=== PATIENT | male | born 1970 | race Caucasian/White ===

== ENCOUNTER 2024-07-11 11:31 | Emergency (ER) | payer OTHER, SELFPAY ==
[2024-07-11 11:39] VITALS: BP 146/91; PULSE 84; RESP 16; TEMP 36.7; O2SAT 100
--- OUTSIDE RECORDS SUMMARY | 2024-07-11 12:16 | XMS_ITS | Encounter Summary ---
Author Organization [facility] Address [address] [place] [id number] Care Team Providers Care Shop Firer/Fireman Name Role Phone Main Benson MD Primary Care Provider [phone] Reason for Visit * Reason Onset Date Comments Advice 05/14/2024 Question 05/14/2024 Encounter Details Date Type Department Care Team (Late st Contact Info) Description 05/14/2024 Telephone [facility] Medical [facility] Multispecialty [address] [address] Too Vargas MD [address] [place] [address] Advice; Question Social History Tobacco Use Types Packs/Day Years Used Date Smoking Tobacco: Every Day Cigarettes 0.5 39.4 Started: 1985 Smokeless Tobacco: Never Alcohol Use Standard Drinks/Week Comments Not Currently 0 (1 standard drink = 0.6 oz pur e alcohol) Sex and Gender Information Value Date Recorded Sex Assigned at Male 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 The most important is the culture result. That will take about 6 to 8 weeks to come in. We will call patient as soon as we have the definite report on the culture. * Pau Linares MA - 06/11/2024 2:04 PM CDT Patient states the health department said they are still looking for those records also patient stated that he was told by Dr. Chin that the TB results came back negative from the bronchoscopy test. * Nadia Cornell - 06/04/2024 3:23 PM CDT Caller name: Gerry Call back/ext. #: [phone] MyChart: No- caller prefers to be called via telephone Call details: Gerry concerned, he reached out to [facility] and told they only hold records for 7 years.and requesting a callback I have encouraged he stick with the plan and sign MINH with [facility] while he wait for callback * Pau Linares MA - 06/04/2024 3:18 PM CDT Spoke with [facility] they stated that patient would have to sign a releasefor them to send us the information, patient states he will go at his earliest convince to sign release * Pau Linares MA - 05/17/2024 2:36 PM CDT Requested documented in this encounter Plan of Treatment Upcoming Encounters Date Type Department Care Team (Late st Contact Info) Description 07/18/2024 2:20 PM CDT Office Visit [facility] [place] [address] Too Vargas MD [address] [place] [address] documented as of this encounter Visit Diagnoses Not on filedocumented in this encounter Additional Health Concerns Infection Onset Date Last Indicated Resolved Time Tuberculosis Rule-Out 05/29/2024 05/29/2024 documented as of this encounter Care Teams Shop Firer/Fireman Relationship Specialty Start Date End Date Main Benson MD [address] [place] [address] PCP - General FAMILY PRACTICE 02/09/24 documented as of this encounter
--- OUTSIDE RECORDS SUMMARY | 2024-07-11 12:16 | XMS_ITS | Patient Health Record ---
Author Organization [facility] Address [address] [place], [place] [id number] Care Team Providers Care Apron Trimmer Name Role Phone Tyler Lockett Unavailable [phone] Reason For Referral No Information Immunizations Vaccine Route Administration Date Status Comme nts Influenza Unknown 07/02/2015 Administered Problems Problem Type SNOMED Code ICD Code Onset Dates Problem Status W/U Status Risk Notes Problem Bilateral chronic serous otitis (934509811) Chronic serous otitis media, bilateral (H65.23) Active confirmed Problem Allergic rhinitis (51598699) Allergic rhinitis, unspecified (J30.9) Active confirmed Problem Dysfunction of bilateral eustachian tubes (604545748110805 0) Other specified disorders of Eustachian tube, bilateral (H69.83) Active confirmed Plan Of Treatment No Information Insurance Providers Payer Name Payer Address Payer Phone Subscriber Number Group Number Insured Name Patient Relationship to Insured Coverage Start Date Coverage End Date [employer] [facility] [address] [address] [place] [address] [id number] Gerry Dooley Self - patient is the insured Medical (General) History Medical History History ICD Code Pertinent Medical History: Ear problems, Nose problems, Surgical History Surgery Date(Month/Year) BTTI 08/2015
--- OUTSIDE RECORDS SUMMARY | 2024-07-11 12:16 | XMS_ITS | Encounter Summary ---
Author Organization [facility] Address [address] [place] [id number] Care Team Providers Care Spice Miller [employer] Mill Name Role Phone Main Benson MD Primary Care Provider [phone] Reason for Visit * Reason Onset Date Comments Advice 05/14/2024 Encounter Details Date Type Department Care Team (Late Contact Info) Description 05/14/2024 Telephone 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 documented in this encounter Plan of Treatment Upcoming Encounters Date Type Department Care Team (Late Contact Info) Description 07/18/2024 2:20 PM CDT Office Visit [facility] Medical [facility] [address] [place] [address] Too Vargas MD [address] [place] [address] documented as of this encounter Visit Diagnoses Not on filedocumented in this encounter Additional Health Concerns Infection Onset Date Last Indicated Resolved Time Tuberculosis Rule-Out 05/29/2024 05/29/2024 documented as of this encounter Care Teams Spice [employer] Relationship Specialty Start Date End Date Main Benson MD [address] [place] [phone] PCP - General FAMILY PRACTICE 02/09/24 documented as of this encounter
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
--- OUTSIDE RECORDS SUMMARY | 2024-07-11 12:16 | XMS_ITS | Encounter Summary ---
Author Organization [facility] Address [address] [place] [address] Care Team Providers Care E Business Consultant Name Role Phone Main Benson MD Primary Care Provider [phone] Reason for Visit * Reason Onset Date Comments Advice 05/14/2024 Encounter Details Date Type Department Care Team (Late Contact Info) Description 05/14/2024 Telephone [facility] Multispecialty [facility] [address] [place] [phone] [place] [address] [place] [address] Advice Social History Tobacco Use Types Packs/Day Years Used Date Smoking Tobacco: Every Day Cigarettes 0.5 39.4 Started: 1985 Smokeless Tobacco: Never Alcohol Use Standard Drinks/Week Comments Not Currently 0 (1 standard drink = 0.6 oz pur e alcohol) Sex and Gender Information Value Date Recorded Sex Assigned at Male 04/01/2024 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 Sex Male 6:19 PM CDT Gender Identity Not on file Sexual Orientation Not on file documented as of this encounter Plan of Treatment Upcoming Encounters Date Type Department Care Team (Late Contact Info) Description 07/18/2024 2:20 PM CDT Office Visit [facility] [place] [address] [place] [address] [place] [address] documented as of this encounter Visit Diagnoses Not on filedocumented in this encounter Additional Health Concerns Infection Onset Date Last Indicated Resolved Time Tuberculosis Rule-Out 05/29/2024 05/29/2024 documented as of this encounter Care Teams E Business Consultant Relationship Specialty Start Date End Date Main Benson MD [address] [place] [phone] PCP - General FAMILY PRACTICE 02/09/24 documented as of this encounter
[2024-07-11] MEDS: ACETAMINOPHEN 500 MG TABLET 1000 MG PO (12:20)
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
== END 2024-07-11 12:26 | disposition home or self-care (01) ==
PROVIDERS: Emergency Provider Emergency Medicine
DX: R51.9 Headache, unspecified (principal); V53.5XXA Driver of pick-up truck or van injured in collision with car, pick-up truck or van in traffic accident, initial encounter
CPT/HCPCS: 99283; A9270

== ENCOUNTER 2024-08-31 14:09 | Emergency (ER) | payer OTHER, SELFPAY ==
[2024-08-31] VITALS (14 sets, daily range): BP systolic 137–152; BP diastolic 82–88; PULSE 81–97; RESP 14–21; TEMP 36.2–36.6; O2SAT 99–100
--- OUTSIDE RECORDS SUMMARY | 2024-08-31 14:11 | XMS_ITS | Encounter Summary ---
Author Organization [facility] Address [address] [place] [address] Care Team Providers Care Lawyer Name Role Phone Main Benson MD Primary Care Provider [phone] Reason for Visit * Reason Onset Date Comments Advice 05/14/2024 Question 05/14/2024 Encounter Details Date Type Department Care Team (Late st Contact Info) Description 05/14/2024 Telephone [facility] Medical [facility] Multispecialty [address] [phone] Too Vargas MD [address] [place] [address] Advice; Question Social History Tobacco Use Types Packs/Day Years Used Date Smoking Tobacco: Every Day Cigarettes 0.5 39.5 Started: 1986 Smokeless Tobacco: Never Alcohol Use Standard Drinks/Week Comments Not Currently 0 (1 standard drink = 0.6 oz pur e alcohol) Sex and Gender Information Value Date Recorded Sex Assigned at Male 04/01/2024 10:[address]UTTER Legal Sex Male 6:19 PM CDT Gender [...] CDT Caller name: Gerry Call back/ext. #: [phone] MyChart: No- caller prefers to be called via telephone Call details: Gerry concerned, he reached out to [facility] and told they only hold records for 7 years.and requesting a callback I have encouraged he stick with the plan and sign MINH with [facility] while he wait for callback * Pau Linares MA - 06/04/2024 3:18 PM CDT Spoke with [facility] they stated that patient would have to sign a releasefor them to send us the information, patient states he will go at his earliest convince to sign release * Pau Linares MA - 05/17/2024 2:36 PM CDT Requested documented in this encounter Plan of Treatment Not on file documented as of this encounter Visit Diagnoses Not on filedocumented in this encounter Additional Health Concerns Infection Onset Date Last Indicated Resolved Time Tuberculosis Rule-Out 05/29/2024 05/29/20242024 11:57 AM CDT documented as of this encounter Care Teams Lawyer Relationship Specialty Start Date End Date Main Benson MD [address] [place] [phone] PCP - General FAMILY PRACTICE 02/09/24 documented as of this encounter
--- OUTSIDE RECORDS SUMMARY | 2024-08-31 14:11 | XMS_ITS | Encounter Summary ---
Author Organization [facility] Address [address] [place] [address] Care Team Providers Care Package Dyer Name Role Phone Main Benson MD Primary Care Provider [phone] Reason for Visit * Reason Onset Date Comments Advice 05/14/2024 Encounter Details Date Type Department Care Team ([facility] st Contact Info) Description 05/14/2024 Telephone [facility] Multispecialty [facility] [address] [place] [phone] Too Vargas MD [address] [place] [address] Advice Social History Tobacco Use Types Packs/Day Years Used Date Smoking Tobacco: Every Day Cigarettes 0.5 39.5 Started: 1985 Smokeless Tobacco: Never Alcohol Use Standard Drinks/Week Comments Not Currently 0 (1 standard drink = 0.6 oz pur e alcohol) Sex and Gender Information Value Date Recorded Sex Assigned at Male 04/01/2024 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
--- OUTSIDE RECORDS SUMMARY | 2024-08-31 14:11 | XMS_ITS | Encounter Summary ---
Author Organization [facility] Address [address] [place] [address] Care Team Providers Care Silk Screen Printing Racker Name Role Phone Main Benson MD Primary Care Provider [phone] Reason for Visit * Reason Onset Date Comments Advice 05/14/2024 Encounter Details Date Type Department Care Team ([facility] st Contact Info) Description 05/14/2024 Telephone [facility] Medical [facility] Multispecialty [facility] [address] [place] [phone] Too Vargas MD [address] [place] [address] Advice Social History Tobacco Use Types Packs/Day Years Used Date Smoking Tobacco: Every Day Cigarettes 0.5 39.5 Started: 1985 Smokeless Tobacco: Never Alcohol Use Standard Drinks/Week Comments Not Currently 0 (1 standard drink = 0.6 oz pur e alcohol) Sex and Gender Information Value Date Recorded Sex Assigned at Male 04/01/2024 10:26 AM 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 Legal Sex Male 6:19 PM CDT Gender Identity Not on file Sexual Orientation Not on file documented as of this encounter Plan of Treatment Not on file documented as of this encounter Visit Diagnoses Not on filedocumented in this encounter Additional Health Concerns Infection Onset Date Last Indicated Resolved Time Tuberculosis Rule-Out 05/29/2024 05/29/20242024 11:57 AM CDT documented as of this encounter Care Teams Silk Screen Printing Racker Relationship Specialty Start Date End Date Main Benson MD [address] [place] [phone] PCP - General FAMILY PRACTICE 02/09/24 documented as of this encounter
--- OUTSIDE RECORDS SUMMARY | 2024-08-31 14:11 | XMS_ITS | Patient Health Record ---
Author Organization [facility] Address [address] [place], [place] [id number] Care Team Providers Care Dye Colorist Dyer Name Role Phone Tyler Lockett Unavailable [phone] Reason For Referral No Information Immunizations Vaccine Route Administration Date Status Comme nts Influenza Unknown 07/02/2015 Administered Problems Problem Type SNOMED Code ICD Code Onset Dates Problem Status W/U Status Risk Notes Problem Bilateral chronic serous otitis (116557558) Chronic serous otitis media, bilateral (H65.23) Active confirmed Problem Allergic rhinitis (05286758) Allergic rhinitis, unspecified (J30.9) Active confirmed Problem Other specified disorders of Eustachian tube, bilateral (H69.83) Active confirmed Plan Of Treatment No Information Insurance Providers Payer Name Payer Address Payer Phone Subscriber Number Group Number Insured Name Patient Relationship to Insured Coverage Start Date Coverage End Date [employer] [facility] [address] [address] [place] [id number] Gerry Dooley Self - patient is the insured Medical (General) History Medical History History ICD Code Pertinent Medical History: Ear problems, Nose problems, Surgical History Surgery Date(Month/Year) BTTI 08/2015
--- OUTSIDE RECORDS SUMMARY | 2024-08-31 14:11 | XMS_ITS | Clinical Summary ---
Author Organization [facility] Address [address] [place] [id number] Care Team Providers Care Grocery Clerk Stocking Name Role Phone Main Benson MD Primary Care Provider [phone]- [phone] Allergies No known active allergies Medications pantoprazole [...] total) by mouth daily. 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 Lung nodule 04/30/2024 History of TB (tuberculosis) 04/30/2024 Centrilobular emphysema (CMS/HCC HHS/HCC) 2024 Smoker 04/30/2024 Encounters Date Type Department Care Team Description 07/05/2024 11:15 AM CDT - 07/05/2024 11:59 PM T Hospital Encounter [facility] [address], [facility] Nadja Gomes MD Ramani, Nirali, MD Discharge Disposition: Home or Self Care (Routine Discharge) 07/05/2024 Travel 06/27/2024 Results Follow-Up [facility] [address] [facility] [place] [address] Mara Schwarz, DYE MIXER CULTURE, ANAEROBIC, CYTOLOGY GENERIC, CULTURE VIRAL RESPIRATORY RAPID, Additional followed-up results: 9 06/06/2024 1:40 PM CDT Telemedicine [facility] Multispecial[facility] [address] [place] [address] Faby Chin MD Follow Up (Med check ) from Last 3 Months Social History Tobacco Use Types Packs/Day Years Used Date Smoking Tobacco: Every Day Cigarettes 0.5 39.5 Started: 1985 Smokeless Tobacco: Never Tobacco Cessation:Ready to Q uit: Not Asked; Counseling Given: Not Answered Alcohol Use Standard Drinks/Week Comments Not Currently 0 (1 standard drink = 0.6 oz pur e alcohol) Sex and Gender Information Value Date Recorded Sex Assigned at Male 04/01/2024 10:26 AM RESEARCH DIRECTOR Legal Sex Male 6:19 PM CDT Gender [...] 11:16 AM CDT Height 175.3 cm (5' 9) 05/29/2024 11:16 AM CDT Body Mass Index 22.45 05/29/2024 11:16 AM CDT Plan of Treatment Health Maintenance Due Date Last Done Comments [...] - 2023-2 5 season) 2023 PHQ-2 (Physician [place]) 02/28/2024 Hepatitis C Completed 04/01/2024 Meningococcal B [...] disease (CKD), stage IV (severe) (CMS/HCC HHS/HCC) PROTEIN TOTAL URINE RANDOM Routine 07/05/2024 [...] disease (CKD), stage IV (severe) (CMS/HCC HHS/HCC) PTH - INTACT Routine 07/05/2024 11:28 AM CDT MGUS (monoclonal gammopathy of unknown significance) Chronic kidney disease (CKD), stage IV (severe) (CMS/HCC HHS/HCC) CBC W/DIFF AUTOMATED Routine 07/05/2024 11:28 AM CDT MGUS (monoclonal gammopathy of unknown significance) Chronic kidney disease (CKD), stage IV (severe) (CMS/HCC HHS/HCC) HEPATITIS PANEL,ACUTE Routine 04/01/2024 11:11 AM RESEARCH DIRECTOR Chronic kidney disease, stage 4 (severe) (CMS/HCC HHS/HCC) Fatigue from Last 3 Months or Most Recently Relevant to Health Maintenance Results * (ABNORMAL) PROTEIN TOTAL URINE RANDOM (07/05/2024 11:30 AM CDT) PROTEIN URINE TOTAL RANDOM 583.0(H) <11.9 MG/DL 07/05/2024 12:06 PM CDT [facility] URINE SPECIMEN / Unknown 07/05/2024 11:30 AM CDT us Tanesha Saez MD URINE ORDERABLES Final Result Performing Organization Address [facility]/ZIP Co de Phone Number [facility] [address] [place] [address], * CREATININE URINE RANDOM (07/05/2024 11:30 AM CDT) CREATININE RANDOM (U) 87.3 MG/DL 07/05/2024 12:06 PM CDT [facility] Comment:REFERENCE RANGE NOT ESTABLISHED URINE SPECIMEN / Unknown 07/05/2024 11:30 AM CDT us Taensha Saez MD URINE ORDERABLES Final Result Performing Organization Address City/[facility]/ZIP Co de Phone Number [facility] [address] [place] [address], * (ABNORMAL) URINALYSIS (07/05/2024 11:30 AM CDT) COLOR (U) YELLOW 07/05/2024 11:50 AM CDT [facility] TRANSPARENCY CLEAR 07/05/2024 11:50 AM CDT [facility] SPECIFIC GRAVITY (U) 1.025 1.000 - 1.025 07/05/2024 11:50 AM CDT [facility] U PH 6.0 5.0 - 8.0 07/05/2024 11:50 AM CDT [facility] LEUKOCYTES (U) NEGATIVE NEGATIVE 07/05/2024 11:50 AM CDT [facility] NITRITES NEGATIVE NEGATIVE 07/05/2024 11:50 AM CDT [facility] PROTEIN RANDOM (U) 3+(A) NEGATIVE 07/05/2024 11:50 AM CDT [facility] GLUCOSE (U) TRACE(A) NEGATIVE 07/05/2024 11:50 AM CDT [facility] KETONES MG/DL (U) NEGATIVE NEGATIVE 07/05/2024 11:50 AM CDT [facility] UROBILINOGEN 0.2 <1.0 EU/DL 07/05/2024 11:50 AM CDT [facility] BILIRUBIN (U) NEGATIVE NEGATIVE 07/05/2024 11:50 AM CDT [facility] BLOOD (U) 2+(A) NEGATIVE 07/05/2024 11:50 AM CDT [facility] WBC/HPF 0-5 0 - 5 /HPF 07/05/2024 11:50 AM CDT [facility] RBC/HPF 0-5 0 - 5 /HPF 07/05/2024 11:50 AM CDT [facility] BACTERIA (U) 1+ /HPF 07/05/2024 11:50 AM CDT [facility] AMORPHOUS SEDIMENT PRESENT 07/05/2024 11:50 AM CDT [facility] OTHER CASTS (U) HYALINE /LPF 11:50 AM CDT [facility] Comment:10-20 URINE SPECIMEN FROM URETHRA / Unknown 07/05/2024 11:30 AM CDT us Tanesha Saez MD URINE ORDERABLES Final Result [facility] [address] [place] [address], [place] [phone] * (ABNORMAL) PTH - INTACT (07/05/2024 11:28 AM CDT) PTH 217.5(H) 18.4 - 80.1 PG/ML 07/05/2024 7:40 PM CDT [facility] Comment: ASSAY PERFORMED BY CHEMILUMINESCENCE METHODOLOGY USING SIEMENS [email or web address] XPT REAGENT. PATIENT RESULTS DETERMINED BY ASSAYS USING DIFFERENT MANUFACTURERS FOR METHODS MAY NOT BE COMPARABLE. 07/05/2024 11:2 8 AM CDT Tanesha Saez MD LABORATORY Final Result [facility] [address] [place] [address], [place] [phone] [id number] * (ABNORMAL) RENAL FUNCTION PANEL (07/05/2024 11:28 AM CDT) Pathologist [facility] SODIUM S/P/B 136 136 - 145 MMOL/L 07/05/2024 11:48 AM CDT [facility] POTASSIUM S/P/B 4.8 3.5 - 5.1 MMOL/L 07/05/2024 11:48 AM CDT [facility] CHLORIDE S/P/B 109(H) 98 - 107 MMOL/L 07/05/2024 11:48 AM CDT [facility] CO2 20.8(L) 21.0 - 32.0 MMOL/L 07/05/2024 11:48 AM CDT [facility] GLUCOSE 87 70 - 99 MG/DL 07/05/2024 11:48 AM CDT [facility] Comment: FASTING GLUCOSE 100 TO 125 MG/DL IS CONSISTENT WITH IMPAIRED FASTING GLUCOSE. FASTING GLUCOSE >125 MG/DL IS CONSISTENT WITH DIABETES. RANDOM GLUCOSE >200 MG/DL WITH HYPERGLYCEMIC SYMPTOMS IS CONSISTENT WITH DIABETES. PER ADA GUIDELINES BUN 24 6 - 24 MG/DL 07/05/2024 11:48 AM CDT [facility] CREATININE S/P/B 3.43(H) 0.70 - 1.30 MG/DL 07/05/2024 11:48 AM CDT [facility] CALCIUM S/P/B 7.8(L) 8.4 - 10.5 MG/DL 07/05/2024 11:48 AM CDT [facility] ALBUMIN S/P/B 1.2(L) 3.4 - 5.0 G/DL 07/05/2024 11:48 AM CDT [facility] PHOSPHORUS 5.2(H) 2.6 - 4.7 MG/DL 07/05/2024 11:48 AM CDT [facility] ANION GAP 6.2 5.0 - 15.0 MMOL/L 07/05/2024 11:48 AM CDT [facility] OSMOLALITY (CALC) 285 MOSM/KG 025 11:48 AM CDT [facility] Comment:REFERENCE RANGE NOT ESTABLISHED GFR ESTIMATE 20(L) >89 ML/MIN/1. 73 M2 07/05/2024 11:48 AM CDT [facility] GFR NOTES GFR REFERENCE S: 07/05/2024 11:48 AM CDT [facility] Comment: THE ESTIMATED GFR IS [...] us Tanesha Saez MD LABORATORY Final Result [facility] [address] [place] [address], * (ABNORMAL) CBC W/DIFF AUTOMATED (07/05/2024 11:28 AM CDT) WBC 6.72 4.00 - 10.80 x10'3/uL 07/05/2024 11:34 AM CDT [facility] RBC 3.24(L) 4.50 - 6.10 x10'6/uL 07/05/2024 11:34 AM CDT [facility] HGB 9.7(L) 13.0 - 18.0 G/DL 07/05/2024 11:34 AM CDT [facility] HCT 30.6(L) 37.0 - 52.0 % 07/05/2024 11:34 AM CDT [facility] MCV 94.4 78.0 - 100.0 FL 07/05/2024 11:34 AM CDT [facility] MCH 29.9 27.0 - 31.0 PG 07/05/2024 11:34 AM CDT [facility] MCHC 31.7(L) 33.0 - 36.0 G/DL 07/05/2024 11:34 AM CDT [facility] RDW 14.3 11.5 - 14.5 % 07/05/2024 11:34 AM CDT [facility] PLT 232 150 - 350 x10'3/uL 07/05/2024 11:34 AM CDT [facility] MPV 9.3 7.4 - 10.4 FL 07/05/2024 11:34 AM CDT [facility] CBC COMMENT NORMAL REFERENCE RANGE NOT ESTABLISHED FOR THE PROPORTIONAL LEUKOCYTE DIFFERENTIAL. 07/05/2024 11:34 AM CDT [facility] NEUTROPHILS % 63.4 % 07/05/2024 11:34 AM CDT [facility] LYMPHOCYTES % 25.0 % 07/05/2024 11:34 AM CDT [facility] MONOCYTES % 6.8 % 07/05/2024 11:34 AM CDT [facility] EOSINOPHILS % 4.2 % 07/05/2024 11:34 AM CDT [facility] BASOPHILS % 0.3 % 07/05/2024 11:34 AM CDT [facility] IMMATURE GRANS % 0.3 % 07/06/19 11:34 AM CDT [facility] NRBC % 0.0 % 07/05/2024 11:34 AM CDT [facility] ABS. NEUTROPHILS 4.26 1.60 - 8.30 x10'3/uL 07/05/2024 11:34 AM CDT [facility] ABS. LYMPHOCYTES 1.68 0.80 - 4.70 x10'3/uL 07/05/2024 11:34 AM CDT [facility] ABS. MONOCYTES 0.46 0.00 - 1.50 x10'3/uL 07/05/2024 11:34 AM CDT [facility] ABS. EOSINOPHILS 0.28 0.00 - 0.40 x10'3/uL 07/05/2024 11:34 AM CDT [facility] ABS. BASOPHILS 0.02 0.00 - 0.20 x10'3/uL 07/05/2024 11:34 AM CDT [facility] ABS. IMMATURE GRANULOCYTES 0.02 0.00 - 0.03 x10'3/uL 07/05/2024 11:34 AM CDT [facility] ABS. NUCLEATED RBC'S 0.00 0.00 - 0.01 x10'3/uL 07/05/2024 11:34 AM CDT [facility] 07/05/2024 11:2 8 AM CDT us Tanesha Saez MD LABORATORY Final Result [facility] [address] [place] [address], * HEPATITIS PANEL,ACUTE (04/01/2024 11:11 AM RESEARCH DIRECTOR) HEPATITIS B SURFACE AG NON-REACT BEN NON-REACT BEN 04/01/2024 8:48 PM RESEARCH DIRECTOR [facility] Comment:HBsAg NOT DETECTED. HEP B CORE IGM NON-REACT BEN NON-REACT BEN 04/01/2024 8:48 PM RESEARCH DIRECTOR [facility] Comment: IgM ANTI HBc NOT DETECTED. DOES NOT EXCLUDE THE POSSIBILITY OF EXPOSURE TO OR INFECTION WITH HBV. NO RETEST REQUIRED. HIGH DOSES OF BIOTIN MAY INTERFERE WITH THIS TEST RESULT. CORRELATION TO CLINICAL HISTORY AND PRESENTATION RECOMMENDED. HAV IGM NON-REACT BEN NON-REACT BEN 04/01/2024 8:48 PM RESEARCH DIRECTOR [facility] Comment: IgM ANTI HAV NOT DETECTED. DOES NOT EXCLUDE THE POSSIBILITY OF EXPOSURE TO OR INFECTION WITH HAV. LEVELS OF IgM ANTI HAV MAY BE BELOW THE CUTOFF IN EARLY INFECTION. HEPATITIS C AB NON-REACT BEN NON-REACT BEN 04/01/2024 8:48 PM RESEARCH DIRECTOR [facility] Comment: ANTIBODIES TO HCV NOT DETECTED. DOES NOT EXCLUDE THE POSSIBILITY OF EXPOSURE TO HCV. 04/01/2024 11:1 1 AM RESEARCH DIRECTOR Carmina Navarro MD LABORATORY Final Result [facility] [address] [place] [address], [id number] from Last 3 Months or Most Recently Relevant to Health Maintenance Insurance C Care Teams Grocery Clerk Stocking Relationship Specialty Start Date End Date Main Benson MD [address] [place] [phone] PCP - General FAMILY PRACTICE 02/09/24
--- NOTE | 2024-08-31 14:14 | ED_ITS ---
HPI - Nausea/Vomiting/Diarrhea General Chief complaint: Nausea/Vomiting/Diarrhea Stated complaint: N/V/D Time Seen by Provider: 08/31/24 14:14 Source: patient Mode of arrival: ambulatory Limitations: no limitations History of Present Illness HPI Narrative: 54-year-old male, smoker a history of hypertension, colonic polyps, questionable lung mass, episode of chest pain 1 month ago for which he started himself on aspirin presents to the ED with a 12 hour history of -- vomiting dark vomitus -- black stool -- epigastric pain no history of NSAIDs use. No history of alcohol use. No current chest pain or lightheadedness. MD elicited complaint: nausea, vomiting and diarrhea Onset (ago): hour(s) ( 12 hours) Description of vomiting: bloody Description of diarrhea: black tarry Associated nausea: Yes Associated abdominal pain: Yes Location of pain: epigastric Pain consistency: constant Severity: moderate Quality: aching Exacerbating factors: none Relieving factors: none Associated symptoms: denies other symptoms Related Data Home Medications ?Medication ?Instructions ?Recorded ?Confirmed ?Last Taken ?Type amlodipine 5 mg tablet 5 mg PO DAILY 02/05/24 05/30/24 05/30/24 History ergocalciferol (vitamin D2) 1,250 1,250 mcg PO WEEKLY 02/05/24 05/30/24 05/30/24 History mcg (50,000 unit) capsule furosemide 20 mg tablet 20 mg PO QAM 02/05/24 05/30/24 05/30/24 History pantoprazole 40 mg tablet,delayed 40 mg PO QAM 02/05/24 05/30/24 05/30/24 History release rosuvastatin 40 mg tablet 40 mg PO DAILY 02/05/24 05/30/24 05/30/24 History sildenafil 100 mg tablet 100 mg PO DIRECTED 03/26/24 05/30/24 Unknown History Allergies Allergy/AdvReac Type Severity Reaction Status Date / Time No Known Allergies Allergy Verified 08/31/24 14:27 Review of Systems 2 Review of Systems: All systems reviewed & are unremarkable except as noted in HPI and below Constitutional: Constitutional: Reports as per HPI and Reports no additional constitutional complaints Eyes: Eyes: Reports as per HPI and Reports no additional eye complaints ENT: Reports system reviewed and no additional complaints, except as documented and Reports as per HPI Cardiovascular: Cardiovascular: Reports as per HPI and Reports no additional cardiovascular complaints Respiratory: Respiratory: Reports as per HPI, Reports no additional respiratory complaints and Reports cough Gastrointestinal: Gastrointestinal: Reports as per HPI and Reports no additional gastrointestinal complaints Comments: hematemesis and melena Genitourinary: Genitourinary: Reports no additional male genitourinary complaints Musculoskeletal: Musculoskeletal: Reports no additional musculoskeletal complaints and Reports as per HPI Integumentary/Breasts: Skin/Breast: Reports system reviewed and no additional complaints, except as docu and Reports as per HPI Neurologic: Reports system reviewed and no additional complaints, except as documented and Reports as per HPI Psychiatric: Psychiatric: Reports no additional psychiatric complaints and Reports as per HPI Endocrine: Endocrine: Reports no additional endocrine complaints and Reports as per HPI Hematologic/Lymphatic: Hematologic/Lymphatic: Reports no additional hematologic/lymphatic complaints and Reports as per HPI Allergic/Immunologic: Allergic/Immunologic: Reports no additional allergic/immunologic complaints and Reports as per HPI [facility] Past Medical History Medical History Hypertension Family History Family History Grandparent Heart disease Hypertension Social History Social History Social History: Caffeine-soda Smoking packs per day: 0.5 Smoking cigarettes per day: 10.0 Years smoked: 38 Smoking pack-years: 19.00 Smoking status: Current every day smoker Tobacco type: cigarettes Alcohol intake: former Alcohol use details: none in 14 yrs Substance use: former Substance use type: does not use Last use: none in 18yrs Living arrangements: with friend(s) Spiritual care concerns: No Exam 2 Narrative: blood pressure 141/80 heart rate of 97. Oxygen saturation of 100% on room air. Const: General: no acute distress Orientation/consciousness: patient oriented x3 Limitations: no limitations HENMT: Head: normal to inspection Ears: external ears normal F cisco/Nose/Sinus: Normal external nose present Face and sinus: normal facial exam Mouth: Yes Normal oral and palatal mucosa present Throat: posterior oropharynx normal Eyes: Conjunctivae: conjunctivae normal Cornea: corneas normal Pupils: E qual, round and reactive pupils present EOM: EOMs intact bilaterally D irect Ophthalmoscopy: no photophobia Neck: Neck: normal visual inspection, no lymphadenopathy and no meningeal signs Chest: Chest palpation & inspection: normal inspection of the chest Resp: Effort & Inspection: normal respiratory effort Auscultation: d iminished lung sounds Cardio: Rate: regular rate Rhythm: regular rhythm GI: GI Palp: Yes Soft to palpation Auscultation: normal bowel sounds O ther: Epigastric tenderness without any rigidity/marisol Back/Spine/Pelvis: Back: no CVA tenderness Skin: General skin exam: normal color Rashes: no rashes Wounds: no wounds Other: scar from Prior crockett on the legs. Neuro: General: patient oriented x3, moves all extremities, no meningeal signs, no focal motor deficits and CN's II-XI intact bilaterally Cranial nerves: Yes Nystagmus not present Speech: normal speech Gait exam (Neuro): Normal gait present Extrem: General: normal to inspection and no clubbing, cyanosis or edema Psych: Mental Status: mental status grossly normal Affect: normal affect Attitude: cooperative Course Course Emergency Course: GI bleeding-- upper renal failure with a BUN/creatinine of 66/3.7 with a bicarbonate of 15 acute blood loss anemia with an H&H of 09/17 Vital Signs Vital signs: Vital Signs Temperature 36.4 C 08/31/24 14:29 Pulse Rate 97 08/31/24 14:29 Respiratory Rate 15 08/31/24 14:29 Blood Pressure 141/88 H 08/31/24 14:29 Pulse Oximetry 100 08/31/24 14:29 Oxygen Delivery Room Air 08/31/24 14:29 Temperature 36.6 C 08/31/24 19:12 Pulse Rate 88 08/31/24 19:12 Respiratory Rate 14 08/31/24 19:12 Blood Pressure 138/84 08/31/24 19:12 Pulse Oximetry 100 08/31/24 19:12 Oxygen Delivery Room Air 08/31/24 18:16 MDM - Nausea/Vomiting/Diarrhea MDM Narrative Medical decision making narrative: upper GI bleeding renal failure acute blood loss any Differential Diagnosis Differential diagnosis: Likely gastroenteritis Medical Records Attestation: I reviewed the patient's medical records. Lab Data Attestation: I reviewed the patient's lab results. 08/31/24 15:02 08/31/24 15:03 Labs: Lab Results 07/05/25 07/05/25 07/05/25 Range/Units 14:53 15:02 15:03 WBC 11.7 H (4.8-10.8) K/mm3 RBC 2.28 L (4.70-6.10) M/mm3 Hgb 6.9 L* (14.0-18.0) g/dL Hct 21.9 L (40.0-54.0) % MCV 96.1 (78.0-102.0) fL MCH 30.3 (27.0-31.0) pg MCHC 31.5 L (32-36) g/dL RDW 15.1 H (11.6-14.4) % Plt Count 277 (150-420) K/mm3 MPV 9.7 (8.7-11.0) fl Immature Gran % (Auto) 0.5 H (0.0-0.0) % Neut % (Auto) 58.4 (50.0-70.0) % Lymph % (Auto) 32.1 (18.0-42.0) % Cavalier % (Auto) 6.0 (2.0-11.0) % Eos % (Auto) 2.8 (1.0-6.0) % Baso % (Auto) 0.2 (0.0-1.0) % Lymph # (Auto) 3.77 (1.10-4.50) K/mm3 Cavalier # (Auto) 0.70 (0.10-0.90) K/mm3 Eos # (Auto) 0.33 (0.02-0.50) K/mm3 Baso # (Auto) 0.02 (0.00-0.10) K/mm3 Abs Immat Gran (auto) 0.06 H (0.00-0.00) K/mm3 Absolute Neuts (auto) 6.85 (1.70-7.20) K/mm3 Absolute Nucleated RBC 0.00 (0.00-0.00) K/mm3 Nucleated RBC % 0.0 (0-0.0) % PT 10.5 (9.50-12.1) Seconds INR 0.9 APTT 26.6 (23.9-30.70) Sec Sodium 134 L (137-145) mmol/L Potassium 4.6 (3.4-5.0) mmol/L Chloride 119 H (98-107) mmol/L Carbon Dioxide 15 L (22-30) mmol/L Anion Gap 0 L (4-12) mmol/L BUN 66 H (9-20) mg/dL Creatinine 3.72 H (0.7-1.3) mg/dL Estim Creat Clear Calc 19 ml/min Estimated GFR 17 L (59 - ) Glucose 93 (65-110) mg/dL Calculated Osmolality 297 H (285-295) mOsm/kg Lactic Acid 0.6 (0.4-2.0) mmol/L Calcium 7.4 L (8.4-10.2) mg/dL Total Bilirubin 0.1 L (0.2-1.3) mg/dL AST 21 (17-59) U/L ALT 8 (6-50) U/L Alkaline Phosphatase 54 (38-126) U/L Troponin I 1.110 H* (0.000-0.034) ng/mL Total Protein 4.0 L (6.3-8.2) g/dL Albumin 1.8 L (3.5-5.1) g/dL Lipase 32 (23-300) U/L Urine Color (Yellow) Urine Appearance (Clear) Urine pH (5.0-8.0) Ur Specific [employer] (1.010-1.020) Urine Protein (Negative) Urine Glucose (UA) (Negative) Urine Ketones (Negative) Ur Blood (Man) (Negative) Urine Nitrate (Negative) Urine Bilirubin (Negative) Urine Urobilinogen (0.2-1.0) mg/dL Leukocyte Esterase Rfl (Negative) ALISE/UL Urine RBC (0-2) /hpf Urine WBC (0-3) /hpf Ur Squamous Epith Cells (Few) /hpf Urine Bacteria (None) /hpf Ur Oval Fat Bodies (None) /lpf Stool Occult Blood Positive A (Negative) Blood Type O Positive Antibody Screen Negative Crossmatch See Detail 08/31/24 Range/Units 15:05 WBC (4.8-10.8) K/mm3 RBC (4.70-6.10) M/mm3 Hgb (14.0-18.0) g/dL Hct (40.0-54.0) % MCV (78.0-102.0) fL MCH (27.0-31.0) pg MCHC (32-36) g/dL RDW (11.6-14.4) % Plt Count (150-420) K/mm3 MPV (8.7-11.0) fl Immature Gran % (Auto) (0.0-0.0) % Neut % (Auto) (50.0-70.0) % Lymph % (Auto) (18.0-42.0) % Cavalier % (Auto) (2.0-11.0) % Eos % (Auto) (1.0-6.0) % Baso % (Auto) (0.0-1.0) % Lymph # (Auto) (1.10-4.50) K/mm3 Cavalier # (Auto) (0.10-0.90) K/mm3 Eos # (Auto) (0.02-0.50) K/mm3 Baso # (Auto) (0.00-0.10) K/mm3 Abs Immat Gran (auto) (0.00-0.00) K/mm3 Absolute Neuts (auto) (1.70-7.20) K/mm3 Absolute Nucleated RBC (0.00-0.00) K/mm3 Nucleated RBC % (0-0.0) % PT (9.50-12.1) Seconds INR APTT (23.9-30.70) Sec Sodium (137-145) mmol/L Potassium (3.4-5.0) mmol/L Chloride (98-107) mmol/L Carbon Dioxide (22-30) mmol/L Anion Gap (4-12) mmol/L BUN (9-20) mg/dL Creatinine (0.7-1.3) mg/dL Estim Creat Clear Calc ml/min Estimated GFR (59 - ) Glucose (65-110) mg/dL Calculated Osmolality (285-295) mOsm/kg Lactic Acid (0.4-2.0) mmol/L Calcium (8.4-10.2) mg/dL Total Bilirubin (0.2-1.3) mg/dL AST (17-59) U/L ALT (6-50) U/L Alkaline Phosphatase (38-126) U/L Troponin I (0.000-0.034) ng/mL Total Protein (6.3-8.2) g/dL Albumin (3.5-5.1) g/dL Lipase (23-300) U/L Urine Color Light yellow (Yellow) Urine Appearance Clear (Clear) Urine pH 6.0 (5.0-8.0) Ur Specific [employer] 1.020 (1.010-1.020) Urine Protein 3+ H (Negative) Urine Glucose (UA) 1+ H (Negative) Urine Ketones Negative (Negative) Ur Blood (Man) 1+ H (Negative) Urine Nitrate Negative (Negative) Urine Bilirubin Negative (Negative) Urine Urobilinogen 0.2 (0.2-1.0) mg/dL Leukocyte Esterase Rfl Negative (Negative) ALISE/UL Urine RBC 3-5 H (0-2) /hpf Urine WBC None seen (0-3) /hpf Ur Squamous Epith Cells None seen (Few) /hpf Urine Bacteria None seen (None) /hpf Ur Oval Fat Bodies None (None) /lpf Stool Occult Blood (Negative) Blood Type Antibody Screen Crossmatch ECG Data EKG #1: ECG completion date: 08/31/24 ECG completion time: 15:00 Interpretation: normal sinus rhythm. Normal axis. Left ventricular hypertrophy. Prominent Q- waves in anteroseptal leads. No ST elevation. Discharge Plan Discharge Clinical Impression: Acute upper GI bleeding, Acute blood loss anemia Renal failure Qualifiers: Renal failure chronicity: unspecified chronicity Qualified Code(s): N19 - Unspecified kidney failure Patient Disposition: Home Condition: Stable Instructions: Antibiotic Form Additional Instructions: transfer patient to [facility]. Patient has been accepted by hospitalist. Patient Language: Green[place]ic Prescriptions: No Action amlodipine 5 mg tablet 5 mg PO DAILY ergocalciferol (vitamin D2) 1,250 mcg (50,000 unit) capsule 1,250 mcg PO WEEKLY furosemide 20 mg tablet 20 mg PO QAM pantoprazole 40 mg tablet,delayed release (DR/EC) 40 mg PO QAM rosuvastatin 40 mg tablet 40 mg PO DAILY sildenafil 100 mg tablet 100 mg PO DIRECTED Follow-up/Referrals: Marcelino,MD Main [Primary Care Provider] - Time of Disposition: 19:19
--- NOTE | 2024-08-31 14:36 | ECG_ITS ---
Test Date: 2024-08-31 15:00:13 Measurements Intervals [place] Rate: 84 P: 61 ND: 147 QRS: 56 QRSD: 76 T: 89 QT: 349 QTc: 413 Interpretive Statements SINUS RHYTHM MODERATE VOLTAGE CRITERIA FOR LVH, CONSIDER NORMAL VARIANT [MEETS CRITERIA IN ONE OF: R(aVL), S(V1), R(V5), R(V5/V6)+S(V1)] POSSIBLE SEPTAL MYOCARDIAL INFARCTION , OF INDETERMINATE AGE [30 ms Q WAVE IN V1/V2] TYPE 3 BRUGADA PATTERN (NON-DIAGNOSTIC) [COVED/SADDLEBACK ST ELEVATION > 0.1mV IN 2 OF V1-3] No previous ECG available for comparison Electronically Signed On 09-02-2024 22:35:04 CDT by Eamon Rollins M.D.
[2024-08-31] MEDS: PANTOPRAZOLE SODIUM IV 40 MG VIAL IV PUSH (14:49)
[2024-08-31 15:10] LABS: Hematocrit 21.9 % (40.0-54.0); Immature Granulocyte Percent A 0.5 % (0.0-0.0); Lymphocytes Absolute Auto 3.77 K/mm3 (1.10-4.50); Mean Corpuscular HGB Conc 31.5 g/dL (32-36); Mean Corpuscular Hemoglobin 30.3 pg (27.0-31.0); Mean Corpuscular Volume 96.1 fL (78.0-102.0); Nucleated Red Blood Cells Absolute Auto 0.00 K/mm3 (0.00-0.00); Nucleated Red Blood Cells Perc 0.0 % (0-0.0); Platelet Count Result 277 K/mm3 (150-420); Red Blood Count 2.28 M/mm3 (4.70-6.10); White Blood Count 11.7 K/mm3 (4.8-10.8)
[2024-08-31 15:14] LABS: Add Urine Microscopic? YES; Appearance Urine Clear (Clear); Glucose Urine UA 1+ (Negative); Leukocyte Esterase Ur Negative LEU/UL (Negative); Nitrate Urine Negative (Negative); Specific Grav Ur 1.020 (1.010-1.020)
[2024-08-31 15:20] LABS: Hemoglobin 6.9 g/dL (14.0-18.0)
[2024-08-31 15:24] LABS: INR 0.9; Partial Thromboplastin Time 26.6 Sec (23.9-30.70); Prothrombin Time 10.5 Seconds (9.50-12.1)
[2024-08-31 15:30] LABS: Alanine Aminotransferase 8 U/L (6-50); Albumin Level 1.8 g/dL (3.5-5.1); Alkaline Phosphatase 54 U/L (38-126); Anion Gap 0 mmol/L (4-12); Aspartate Amino Transferase 21 U/L (17-59); Bilirubin,Total 0.1 mg/dL (0.2-1.3); Blood Urea Nitrogen 66 mg/dL (9-20); Calcium 7.4 mg/dL (8.4-10.2); Carbon Dioxide 15 mmol/L (22-30); Chloride 119 mmol/L (98-107); Estimated CRCL calculation 19 ml/min; Estimated Glomerular Filt Rate 17; Glucose 93 mg/dL (65-110); Lipase 32 U/L (23-300); Osmolality Calculated 297 mOsm/kg (285-295); Potassium 4.6 mmol/L (3.4-5.0); Sodium 134 mmol/L (137-145); Total Protein 4.0 g/dL (6.3-8.2)
[2024-08-31] MEDS: SODIUM CHLORIDE 0.9% IV 500 ML 999 ML IV CONT (15:58)
[2024-08-31 17:31] LABS: Troponin I 1.110 ng/mL (0.000-0.034)
--- NOTE | 2024-08-31 17:40 | PC.NURSE ---
[facility] estimates 2 hours before a transport will be available. [facility] will take transport as soon as they are available.
--- NOTE | 2024-08-31 18:33 | PC.NURSE ---
Blood transfusing. Pt tolerating well.
[2024-08-31] MEDS: SODIUM CHLORIDE 0.9% IV 250 ML 30 ML IV CONT (19:19)
== END 2024-08-31 19:34 | disposition home or self-care (01) ==
PROVIDERS: Emergency Provider Internal Medicine Critical Care Medicine; PCP Family Medicine
DX: K92.2 Gastrointestinal hemorrhage, unspecified (principal); D62 Acute posthemorrhagic anemia; N19 Unspecified kidney failure; I10 Essential (primary) hypertension; F17.210 Nicotine dependence, cigarettes, uncomplicated
CPT/HCPCS: 36415; 36430; 80053; 81001; 83605; 83690; 84484; 85025; 85610; 85730; 86850; 86900; 86901; 86920; 93005; 96361; 96374; 99285; J2470; J7040; J7050; P9016

== ENCOUNTER 2024-08-31 20:38 | Inpatient (IN) | payer OTHER, SELFPAY ==
--- NOTE | ~2024-08-31 | US_ITS ---
EXAMINATION: US renal BI DATE: 09/01/2024 14:22 INDICATION: ARF TECHNIQUE: Multiple grayscale and Doppler ultrasound images of the kidneys were obtained. COMPARISON: None. FINDINGS: The right kidney measures 10.8 x 4.4 x 3.8 cm. The left kidney measures 11.2 x 4.7 x 4.1 cm. The kidn eys demonstrate normal parenchymal echogenicity. Slightly hyperechoic liver. There is no hydronephros is. The bladder is normal. IMPRESSION: Unremarkable renal sonogram findings. Echogenic liver, most commonly due to steatosis but also can be seen with hepatitis and fibrosis. Reviewed, dictated and finalized at location K. IMPRESSION: Unremarkable renal sonogram findings. Echogenic liver, most commonly due to steatosis but also can be seen with hepat itis and fibrosis.
--- OUTSIDE RECORDS SUMMARY | 2024-08-31 20:09 | XMS_ITS | Patient Health Record ---
Author Organization [facility] Address [address] [place], [place] [address] Care Team Providers Care Label Stamper Name Role Phone Tyler Lockett Unavailable [phone] Reason For Referral No Information Immunizations Vaccine Route Administration Date Status Comme nts Influenza Unknown 07/02/2015 Administered Problems Problem Type SNOMED Code ICD Code Onset Dates Problem Status W/U Status Risk Notes Problem Bilateral chronic serous otitis (481069512) Chronic serous otitis media, bilateral (H65.23) Active confirmed Problem Allergic rhinitis (10016229) Allergic rhinitis, unspecified (J30.9) Active confirmed Problem Other specified disorders of Eustachian tube, bilateral (H69.83) Active confirmed Plan Of Treatment No Information Insurance Providers Payer Name Payer Address Payer Phone Subscriber Number Group Number Insured Name Patient Relationship to Insured Coverage Start Date Coverage End Date [employer] [address] [address] [place] [id number] Gerry Dooley Self - patient is the insured Medical (General) History Medical History History ICD Code Pertinent Medical History: Ear problems, Nose problems, Surgical History Surgery Date(Month/Year) BTTI 08/2015
--- OUTSIDE RECORDS SUMMARY | 2024-08-31 20:09 | XMS_ITS | Encounter Summary ---
Author Organization [facility] Address [address] [place] [address] Care Team Providers Care Blacktop Paver Operator Name Role Phone Main Benson MD Primary Care Provider [phone] Reason for Visit * Reason Onset Date Comments Advice 05/14/2024 Encounter Details Date Type Department Care Team ([facility] st Contact Info) Description 05/14/2024 Telephone [facility] [address] [place] [phone] Too Vargas MD [address] [place] [address] Advice Social History Tobacco Use Types Packs/Day Years Used Date Smoking Tobacco: Every Day Cigarettes 0.5 39.5 Started: 1986 Smokeless Tobacco: Never Alcohol Use Standard Drinks/Week Comments Not Currently 0 (1 standard drink = 0.6 oz pur e alcohol) Sex and Gender Information Value Date Recorded Sex Assigned at Male 04/01/2024 10:26 AM 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
--- OUTSIDE RECORDS SUMMARY | 2024-08-31 20:09 | XMS_ITS | Encounter Summary ---
Author Organization [facility] Address [address] [place] [address] Care Team Providers Care Thread Roller Name Role Phone Main Benson MD Primary Care Provider [phone] Reason for Visit * Reason Onset Date Comments Advice 05/14/2024 Encounter Details Date Type Department Care Team ([facility] st Contact Info) Description 05/14/2024 Telephone [facility] Medical Group Mult[facility]pec[facility]ty [facility] [address] [place] [phone] Too Vargas MD [address] [place] [address] Advice Social History Tobacco Use Types Packs/Day Years Used Date Smoking Tobacco: Every Day Cigarettes 0.5 39.5 Started: 1986 Smokeless Tobacco: Never Alcohol Use Standard Drinks/Week Comments Not Currently 0 (1 standard drink = 0.6 oz pur e alcohol) Sex and Gender Information Value Date Recorded Sex Assigned at Male 04/01/2024 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
--- OUTSIDE RECORDS SUMMARY | 2024-08-31 20:09 | XMS_ITS | Encounter Summary ---
Author Organization [facility] Address [address] [place] [address] Care Team Providers Care Flash Drier Operator Name Role Phone Main Benson MD Primary Care Provider [phone] Reason for Visit * Reason Onset Date Comments Advice 05/14/2024 Question 05/14/2024 Encounter Details Date Type Department Care Team (Late st Contact Info) Description 05/14/2024 Telephone [facility] Multispecialty [address] [phone] Too Vargas MD [address] [place] [address] Advice; Question Social History Tobacco Use Types Packs/Day Years Used Date Smoking Tobacco: Every Day Cigarettes 0.5 39.5 Started: 1985 Smokeless Tobacco: Never Alcohol Use Standard Drinks/Week Comments Not Currently 0 (1 standard drink = 0.6 oz pur e alcohol) Sex and Gender Information Value Date Recorded Sex Assigned at Male 04/01/2024 10:26 AM 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 #: [phone] MyChart: No- caller prefers to be called via telephone Call details: Gerry concerned, he reached out to [facility] and told they only hold records for 7 years.and requesting a callback I have encouraged he stick with the plan and sign MINH with [facility] while he wait for callback * Pau Linares MA - 06/04/2024 3:18 PM CDT Spoke with [facility] they stated that patient would have [...] documented as of this encounter Care Teams Flash Drier Operator Relationship Specialty Start Date End Date Main Benson MD [address] [place] [phone] PCP - General FAMILY PRACTICE 02/09/24 documented as of this encounter
--- OUTSIDE RECORDS SUMMARY | 2024-08-31 20:09 | XMS_ITS | Clinical Summary ---
Author Organization [facility] Address [address] [place] [address] Care Team Providers Care Research Compliance Specialist Name Role Phone Main Benson MD Primary Care Provider [phone] Allergies No known active allergies Medications pantoprazole [...] - 07/05/2024 11:59 PM T Hospital Encounter [facility] [address], [facility] Nadja Gomes MD Ramani, Nirali, MD Discharge Disposition: Home or Self Care (Routine Discharge) 07/05/2024 Travel 06/27/2024 Results Follow-Up [facility] [address] [facility] [place] [place] [address] Mara Schwarz, CHEMICAL PROCESSING SUPERVISOR CULTURE, ANAEROBIC, CYTOLOGY GENERIC, CULTURE VIRAL RESPIRATORY RAPID, Additional followed-up results: 9 06/06/2024 1:40 PM CDT Telemedicine [facility] Medical [facility] Mult[facility] [address] [place] [phone] Faby Chin MD Follow Up [...] Sex Assigned at Male 04/01/2024 10:[address] PRODUCTION GENERAL MANAGER Legal Sex Male 6:19 PM CDT Gender [...] - 2023-2 5 season) 2023 PHQ-2 (Physician [place]) 02/28/2024 Hepatitis C Completed 04/01/2024 Meningococcal B [...] HHS/HCC) HEPATITIS PANEL,ACUTE Routine 04/01/2024 11:[address] PRODUCTION GENERAL MANAGER Chronic kidney disease, stage 4 (severe) (CMS/HCC HHS/HCC) Fatigue from Last 3 Months or Most Recently Relevant to Health Maintenance Results * (ABNORMAL) PROTEIN TOTAL URINE RANDOM (07/05/2024 11:30 AM CDT) PROTEIN URINE TOTAL RANDOM 583.0(H) <11.9 MG/DL 07/05/2024 12:06 PM CDT [facility] URINE SPECIMEN / Unknown 07/05/2024 11:30 AM CDT us Tanesha Saez MD URINE ORDERABLES Final Result Performing Organization Address [facility]/ZIP Co de Phone Number [facility] [address] [place] [address], * CREATININE URINE RANDOM (07/05/2024 11:30 AM CDT) CREATININE RANDOM (U) 87.3 MG/DL 07/05/2024 12:06 PM CDT [facility] Comment:REFERENCE RANGE NOT ESTABLISHED URINE SPECIMEN / Unknown 07/05/2024 11:30 AM CDT us Tanesha Saez MD URINE ORDERABLES Final Result Performing Organization Address City/[facility]/ZIP Co de Phone Number [facility] [address] [place] [address], * (ABNORMAL) URINALYSIS (07/05/2024 11:30 AM CDT) COLOR (U) YELLOW 07/05/2024 11:50 AM CDT [facility] TRANSPARENCY CLEAR 07/05/2024 11:50 AM CDT [facility] SPECIFIC GRAVITY (U) 1.025 1.000 - 1.025 07/05/2024 11:50 AM CDT [facility] U PH 6.0 5.0 - 8.0 07/05/2024 11:50 AM CDT [facility] LEUKOCYTES (U) NEGATIVE NEGATIVE 07/05/2024 11:50 AM CDT [facility] NITRITES NEGATIVE NEGATIVE 07/05/2024 11:50 AM CDT [facility] PROTEIN RANDOM (U) 3+(A) NEGATIVE 07/05/2024 11:50 AM CDT [facility] GLUCOSE (U) TRACE(A) NEGATIVE 07/05/2024 11:50 AM CDT [facility] KETONES MG/DL (U) NEGATIVE NEGATIVE 07/05/2024 11:50 AM CDT [facility] UROBILINOGEN 0.2 <1.0 EU/DL 07/05/2024 11:50 AM CDT [facility] BILIRUBIN (U) NEGATIVE NEGATIVE 07/05/2024 11:50 AM CDT [facility] BLOOD (U) 2+(A) NEGATIVE 07/05/2024 11:50 AM CDT [facility] WBC/HPF 0-5 0 - 5 /HPF 07/05/2024 11:50 AM CDT [facility] RBC/HPF 0-5 0 - 5 /HPF 07/05/2024 11:50 AM CDT [facility] BACTERIA (U) 1+ /HPF 07/05/2024 11:50 AM CDT [facility] AMORPHOUS SEDIMENT PRESENT 07/05/2024 11:50 AM CDT [facility] OTHER CASTS (U) HYALINE /LPF 11:50 AM CDT [facility] Comment:10-20 URINE SPECIMEN FROM URETHRA / Unknown 07/05/2024 11:30 AM CDT us Tanesha Saez MD URINE ORDERABLES Final Result [facility] [address] [place] [address], [place] [phone] * (ABNORMAL) PTH - INTACT (07/05/2024 11:28 AM CDT) PTH 217.5(H) 18.4 - 80.1 PG/ML 07/05/2024 7:40 PM CDT [facility] Comment: ASSAY PERFORMED BY CHEMILUMINESCENCE METHODOLOGY USING SIEMENS [employer] XPT REAGENT. PATIENT RESULTS DETERMINED BY ASSAYS USING DIFFERENT MANUFACTURERS FOR METHODS MAY NOT BE COMPARABLE. 07/05/2024 11:2 8 AM CDT Tanesha Saez MD LABORATORY Final Result [facility] [address] [place] [address], [place] [phone] * (ABNORMAL) RENAL FUNCTION PANEL (07/05/2024 11:28 AM CDT) Pathologist [facility] SODIUM S/P/B 136 136 - 145 MMOL/L 07/05/2024 11:48 AM CDT [facility] POTASSIUM S/P/B 4.8 3.5 - 5.1 MMOL/L 07/05/2024 11:48 AM CDT [facility] CHLORIDE S/P/B 109(H) 98 - 107 MMOL/L 07/05/2024 11:48 AM CDT [facility] CO2 20.8(L) 21.0 - 32.0 MMOL/L 07/05/2024 11:48 AM CDT [facility] GLUCOSE 87 70 - 99 MG/DL 07/05/2024 11:48 AM CDT [facility] Comment: FASTING GLUCOSE 100 TO 125 MG/DL IS CONSISTENT WITH IMPAIRED FASTING GLUCOSE. FASTING GLUCOSE >125 MG/DL IS CONSISTENT WITH DIABETES. RANDOM GLUCOSE >200 MG/DL WITH HYPERGLYCEMIC SYMPTOMS IS CONSISTENT WITH DIABETES. PER ADA GUIDELINES BUN 24 6 - 24 MG/DL 07/05/2024 11:48 AM CDT [facility] CREATININE S/P/B 3.43(H) 0.70 - 1.30 MG/DL 07/05/2024 11:48 AM CDT [facility] CALCIUM S/P/B 7.8(L) 8.4 - 10.5 MG/DL 07/05/2024 11:48 AM CDT [facility] ALBUMIN S/P/B 1.2(L) 3.4 - 5.0 G/DL 07/05/2024 11:48 AM CDT [facility] PHOSPHORUS 5.2(H) 2.6 - 4.7 MG/DL 07/05/2024 11:48 AM CDT [facility] ANION GAP 6.2 5.0 - 15.0 MMOL/L 07/05/2024 11:48 AM CDT [facility] OSMOLALITY (CALC) 285 MOSM/KG 025 11:48 AM CDT [facility] Comment:REFERENCE RANGE NOT ESTABLISHED GFR ESTIMATE 20(L) >89 ML/MIN/1. 73 M2 07/05/2024 11:48 AM CDT [facility] GFR NOTES GFR REFERENCE S: 07/05/2024 11:48 AM CDT [facility] Comment: THE ESTIMATED GFR IS [...] us Tanesha Saez MD LABORATORY Final Result [facility] [address] [place] [address], * (ABNORMAL) CBC W/DIFF AUTOMATED (07/05/2024 11:28 AM CDT) WBC 6.72 4.00 - 10.80 x10'3/uL 07/05/2024 11:34 AM CDT [facility] RBC 3.24(L) 4.50 - 6.10 x10'6/uL 07/05/2024 11:34 AM CDT [facility] HGB 9.7(L) 13.0 - 18.0 G/DL 07/05/2024 11:34 AM CDT [facility] HCT 30.6(L) 37.0 - 52.0 % 07/05/2024 11:34 AM CDT [facility] MCV 94.4 78.0 - 100.0 FL 07/05/2024 11:34 AM CDT [facility] MCH 29.9 27.0 - 31.0 PG 07/05/2024 11:34 AM CDT [facility] MCHC 31.7(L) 33.0 - 36.0 G/DL 07/05/2024 11:34 AM CDT [facility] RDW 14.3 11.5 - 14.5 % 07/05/2024 11:34 AM CDT [facility] PLT 232 150 - 350 x10'3/uL 07/05/2024 11:34 AM CDT [facility] MPV 9.3 7.4 - 10.4 FL 07/05/2024 11:34 AM CDT [facility] CBC COMMENT NORMAL REFERENCE RANGE NOT ESTABLISHED FOR THE PROPORTIONAL LEUKOCYTE DIFFERENTIAL. 07/05/2024 11:34 AM CDT [facility] NEUTROPHILS % 63.4 % 07/05/2024 11:34 AM CDT [facility] LYMPHOCYTES % 25.0 % 07/05/2024 11:34 AM CDT [facility] MONOCYTES % 6.8 % 07/05/2024 11:34 AM CDT [facility] EOSINOPHILS % 4.2 % 07/05/2024 11:34 AM CDT [facility] BASOPHILS % 0.3 % 07/05/2024 11:34 AM CDT [facility] IMMATURE GRANS % 0.3 % 07/06/19 11:34 AM CDT [facility] NRBC % 0.0 % 07/05/2024 11:34 AM CDT [facility] ABS. NEUTROPHILS 4.26 1.60 - 8.30 x10'3/uL 07/05/2024 11:34 AM CDT [facility] ABS. LYMPHOCYTES 1.68 0.80 - 4.70 x10'3/uL 07/05/2024 11:34 AM CDT [facility] ABS. MONOCYTES 0.46 0.00 - 1.50 x10'3/uL 07/05/2024 11:34 AM CDT [facility] ABS. EOSINOPHILS 0.28 0.00 - 0.40 x10'3/uL 07/05/2024 11:34 AM CDT [facility] ABS. BASOPHILS 0.02 0.00 - 0.20 x10'3/uL 07/05/2024 11:34 AM CDT [facility] ABS. IMMATURE GRANULOCYTES 0.02 0.00 - 0.03 x10'3/uL 07/05/2024 11:34 AM CDT [facility] ABS. NUCLEATED RBC'S 0.00 0.00 - 0.01 x10'3/uL 07/05/2024 11:34 AM CDT [facility] 07/05/2024 11:2 8 AM CDT us Tanesha Saez MD LABORATORY Final Result [facility] [address] [place] [address], * HEPATITIS PANEL,ACUTE (04/01/2024 11:[address] PRODUCTION GENERAL MANAGER) HEPATITIS B SURFACE AG NON-REACT BEN NON-REACT BEN 04/01/2024 8:[address] PRODUCTION GENERAL MANAGER [facility] Comment:HBsAg NOT DETECTED. HEP B CORE IGM NON-REACT BEN NON-REACT BEN 04/01/2024 8:[address] PRODUCTION GENERAL MANAGER [facility] Comment: IgM ANTI HBc NOT DETECTED. DOES NOT EXCLUDE THE POSSIBILITY OF EXPOSURE TO OR INFECTION WITH HBV. NO RETEST REQUIRED. HIGH DOSES OF BIOTIN MAY INTERFERE WITH THIS TEST RESULT. CORRELATION TO CLINICAL HISTORY AND PRESENTATION RECOMMENDED. HAV IGM NON-REACT BEN NON-REACT BEN 04/01/2024 8:[address] PRODUCTION GENERAL MANAGER [facility] Comment: IgM ANTI HAV NOT DETECTED. DOES NOT EXCLUDE THE POSSIBILITY OF EXPOSURE TO OR INFECTION WITH HAV. LEVELS OF IgM ANTI HAV MAY BE BELOW THE CUTOFF IN EARLY INFECTION. HEPATITIS C AB NON-REACT BEN NON-REACT BEN 04/01/2024 8:[address] PRODUCTION GENERAL MANAGER [facility] Comment: ANTIBODIES TO HCV NOT DETECTED. DOES NOT EXCLUDE THE POSSIBILITY OF EXPOSURE TO HCV. 04/01/2024 11:[address] PRODUCTION GENERAL MANAGER Carmina Navarro MD LABORATORY Final Result [facility] [address] [place] [address], [id number] from Last 3 Months or Most Recently Relevant to Health Maintenance Insurance C Care Teams Research Compliance Specialist Relationship Specialty Start Date End Date Main Benson MD [address] [place] [phone] PCP - General FAMILY PRACTICE 02/09/24
[2024-08-31 20:11] VITALS: PULSE 82
[2024-08-31 20:12] VITALS: BMI 20.3
[2024-08-31 20:32] VITALS: BP 148/86; PULSE 89; RESP 20; TEMP 36.8; O2SAT 100
--- NOTE | 2024-08-31 20:40 | PM.IMHP ---
H&P: HPI History of Present Illness Date/Time: 08/31/24 20:40 Chief Complaint: GI Bleed Narrative: 54 y/o M with PMH of Gonzales's, HLD, HTN, GERD, questionable lung mass, and colonic polyps presents with N/V/D. The patient presented to [place] ED on 08/31 for further evaluation of nausea, vomiting, diarrhea.? He reports onset at 3:00 a.m. this morning.? He reports his vomit and stools have a black quality to them.?Denies more coffee ground appearance to emesis. He reports he has been passing a bowel movement every 20-30 minutes since onset. ?He reports associated abdominal pain which he describes as near his umbilicus, nonradiating, constant -> intermittent, and no modifying factors. He endorses accompanying chills. He denies fever or body aches. ?He has a history of colonic polyps which have required multiple colonoscopies in the past - last one was in 2021 or 2022.? He denies any history of NSAID use or alcohol use.? He denies any known history of renal failure, kidney disease etc. Patient is not on anticoagulation. Initial VS at presentation in ED: ?97.6? F, HR 97, RR 15, 141/88, and 100% on RA. Initial VS upon arrival: ED workup showed: ?WBC 11.7, hemoglobin 6.9, normal coags, sodium 134, creatinine 3.72, BUN 66, GFR 17 with no previous available for comparison, osmolality 297, calcium 7.4 in the setting of hypoalbuminemia at 1.8, troponin 1.11, and UA showed 3+ protein/1+ glucose/1+ blood/3-5 RBC.? Stool occult was positive.? Patient was not a candidate for CTA of the abdomen/pelvis due to his renal function.? EKG showed sinus rhythm, rate 84, moderate voltage criteria for LVH, type 3 Brugada pattern, possible septal NH of indeterminate age.? Awaiting formal read. Review of Systems Review of Systems: All systems reviewed & are unremarkable except as noted in HPI and below [facility] Past Medical History Medical History (Updated 08/31/24 @ 23:55 by Soha Sandy, JORGE) Depression Anemia Barretts esophagus GERD (gastroesophageal reflux disease) Gall bladder disease Crohn disease Tuberculosis (2007) HLD (hyperlipidemia) HTN (hypertension) Family History Family History Grandparent Acute myocardial infarction Social History Social History Smoking packs per day: 1 Smoking cigarettes per day: 20.0 Years smoked: 39 Smoking pack-years: 39.00 Smoking status: Current every day smoker Tobacco type: cigarettes Second hand tobacco smoke exposure: Yes Alcohol intake: former Drinks per week: 0 Substance use: former Substance use type: crack/cocaine Last use: 2007 Do You Feel Safe in your Home?: Yes Lack of Transportation: No Lack of Food: Never True Current Housing: I Have Housing Concerned About Future Housing: No Difficulty Paying Gas/Electric Bills: No Difficulty Paying for Meds: No Currently Unemployed: No Education: Associate Degree Difficulty w/ Childcare or Family Care: No Spiritual care concerns: No Meds Home Medications and Allergies Home Medications ?Medication ?Instructions ?Recorded ?Confirmed ?Type amlodipine 5 mg tablet 5 mg PO DAILY 08/31/24 08/31/24 History ergocalciferol (vitamin D2) 1,250 1,250 mcg PO WEEKLY 08/31/24 08/31/24 History mcg (50,000 unit) capsule furosemide 20 mg tablet 20 mg PO DAILY 08/31/24 08/31/24 History losartan 50 mg tablet 50 mg PO DAILY 08/31/24 08/31/24 History pantoprazole 40 mg tablet,delayed 40 mg PO DAILY 08/31/24 08/31/24 History release rosuvastatin 40 mg tablet 40 mg PO DAILY 08/31/24 08/31/24 History sildenafil 100 mg tablet 100 mg PO PRN 08/31/24 08/31/24 History Allergies Allergy/AdvReac Type Severity Reaction Status Date / Time No Known Allergies Allergy Verified 07/11/24 11:34 Vital Signs Vital Signs - 24 hr 08/31/24 20:32 Temperature 98.2 F Pulse Rate 89 Respiratory Rate 20 Blood Pressure 148/86 H Pulse Oximetry 100 Exam Const: General: comfortable and no acute distress Other: , male, nontoxic appearance HENMT: Face/Nose/Sinus: Normal nares present Mouth: Yes moist mucous membranes Eyes: General: appearance normal, both eyes and all related structures Sclera: sclerae normal Pupils: Equal, round and reactive pupils present EOM: EOMs intact bilaterally Resp: Effort & Inspection: normal respiratory effort Auscultation: clear to auscultation bilaterally Cardio: Rate: regular rate Rhythm: regular rhythm Other: S1-S2 present without murmur, rub, ectopy GI: Other: Abdomen soft, nondistended, nontender. Normoactive bowel sounds in all quadrants. Skin: General skin exam: normal color and no rashes or lesions noted Wounds: no wounds Neuro: Speech: normal speech Motor exam (neuro): 5/5 motor strength present throughout Sensory Exam: normal sensation Other: A&O x4 Extrem: General: normal to inspection Psych: Mental Status: mental status grossly normal Affect: normal affect Other: good insight judgment, pleasant Assessment and Plan Assessment and plan (1) GI bleed: Qualifiers: GI bleed type/associated pathology: unspecified gastrointestinal hemorrhage type Qualified Code(s): K92.2 - Gastrointestinal hemorrhage, unspecified Code(s): K92.2 - Gastrointestinal hemorrhage, unspecified Status: Acute Assessment and Plan: Dark emesis and dark tarry stools starting at 3:00 a.m. on 08/31. - Hgb 6.9, plan for 1u of PRBC - hemoccult+ - not on anticoagulation - unable to perform CTA due to patient?s renal function - GI consulted, awaiting recs plan for upper EGD tomorrow on 09/01 - trend H&H Q4H - started on pantoprazole BID - last colonoscopy in 2022, not on file - no EGD on file - monitor hemodynamic stability and telemetry, admit to IMU (2) Acute renal failure: Qualifiers: Acute renal failure type: unspecified Qualified Code(s): N17.9 - Acute kidney failure, unspecified Code(s): N17.9 - Acute kidney failure, unspecified Status: Acute Assessment and Plan: - check renal ultrasound - check CK, urine sodium, protein/creatinine, phos, mag - UA:? 3+ protein 1+ glucose, 1+ blood, 3-5 RBC - bladder scan post void x1 - monitor I&Os - reviewed home medications, will hold Lasix 20 mg - nephrology consulted (3) Elevated troponin: Code(s): R79.89 - Other specified abnormal findings of blood chemistry Status: Acute Assessment and Plan: - EKG, initial: showed sinus rhythm, rate 84, moderate voltage criteria for LVH, type 3 Brugada pattern, possible septal NH of indeterminate age.? Awaiting formal read. - repeat EKG upon arrival - check CXR - Troponin: 1.11 -> 1.3, trend - hold ASA admin, concern for GI Bleed - SL nitro PRN - cardiology consulted - no previous stress test of echo on file - continue rosuvastatin - telemetry monitoring (4) HTN (hypertension): Qualifiers: Hypertension type: primary hypertension Qualified Code(s): I10 - Essential (primary) hypertension Code(s): I10 - Essential (primary) hypertension Status: Chronic Assessment and Plan: - chronic, currently 141/88 - continue home medications:? Amlodipine, losartan , Lasix - monitor Plan Diet: NPO GI Prophylaxis: Pantoprazole b.i.d. DVT Prophylaxis: SCDs IV fluids: NS 100 mL/hr Lines/Tubes: peripheral IV Code Status: full code Quality VTE Prophylaxis VTE prophylaxis: mechanical ordered Hospitalist MIPS Advance Care Plan I have confirmed that the patient's Advanced Care Plan is present, code status is documented, or surrogate decision maker is listed in patient medical record.: Yes Medication Reconciliation I have utilized all available resources to obtain, update and review the patients current medications (includes all prescriptions, OTC, herbals, cannabis, and nutritional supplements).: Yes
--- OUTSIDE RECORDS SUMMARY | 2024-08-31 20:50 | XMS_ITS | Encounter Summary ---
Author Organization [facility] Address [address] [place] [id number] Care Team Providers Care Corporate Logistics Manager Name Role Phone Main Benson MD Primary Care Provider [phone] Reason for Visit * Reason Onset Date Comments Advice 05/14/2024 Encounter Details Date Type Department Care Team ([facility] st Contact Info) Description 05/14/2024 Telephone [facility] [address] [place] [phone] Too Vargas MD [address] [place] [address] Advice Social History Tobacco Use Types Packs/Day Years Used Date Smoking Tobacco: Every Day Cigarettes 0.5 39.5 Started: 1986 Smokeless Tobacco: Never Alcohol Use Standard Drinks/Week Comments Not Currently 0 (1 standard drink = 0.6 oz pur e alcohol) Sex and Gender Information Value Date Recorded Sex Assigned at Male 04/01/2024 10:26 AM 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
--- OUTSIDE RECORDS SUMMARY | 2024-08-31 20:50 | XMS_ITS | Encounter Summary ---
Author Organization [facility] Address [address] [place] [address] Care Team Providers Care Creative Engagement Director Name Role Phone Main Benson MD Primary Care Provider [phone] Reason for Visit * Reason Onset Date Comments Advice 05/14/2024 Question 05/14/2024 Encounter Details Date Type Department Care Team (Late st Contact Info) Description 05/14/2024 Telephone [facility] Medical [facility] Multispecialty [address] [phone] Too Vargas MD [address] [place] [address] Advice; Question Social History Tobacco Use Types Packs/Day Years Used Date Smoking Tobacco: Every Day Cigarettes 0.5 39.5 Started: 1986 Smokeless Tobacco: Never Alcohol Use Standard Drinks/Week Comments Not Currently 0 (1 standard drink = 0.6 oz pur e alcohol) Sex and Gender Information Value Date Recorded Sex Assigned at Male 04/01/2024 10:26 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 #: [phone] MyChart: No- caller prefers to be called via telephone Call details: Gerry concerned, he reached out to [facility] and told they only hold records for 7 years.and requesting a callback I have encouraged he stick with the plan and sign MINH with [facility] while he wait for callback * Pau Linares MA - 06/04/2024 3:18 PM CDT Spoke with [facility] they stated that patient would have [...] documented as of this encounter Care Teams Creative Engagement Director Relationship Specialty Start Date End Date Main Benson MD [address] [place] [phone] PCP - General FAMILY PRACTICE 02/09/24 documented as of this encounter
--- OUTSIDE RECORDS SUMMARY | 2024-08-31 20:50 | XMS_ITS | Encounter Summary ---
Author Organization [facility] Address [address] [place] [address] Care Team Providers Care Career Development Specialist Name Role Phone Main Benson MD Primary Care Provider [phone] Reason for Visit * Reason Onset Date Comments Advice 05/14/2024 Encounter Details Date Type Department Care Team ([facility] st Contact Info) Description 05/14/2024 Telephone [facility] Medical Group Multispecialty [facility] [address] [place] [phone] Too Vargas MD [address] [place] [address] Advice Social History Tobacco Use Types Packs/Day Years Used Date Smoking Tobacco: Every Day Cigarettes 0.5 39.5 Started: 1986 Smokeless Tobacco: Never Alcohol Use Standard Drinks/Week Comments Not Currently 0 (1 standard drink = 0.6 oz pur e alcohol) Sex and Gender Information Value Date Recorded Sex Assigned at Male 04/01/2024 10:26 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
--- OUTSIDE RECORDS SUMMARY | 2024-08-31 20:50 | XMS_ITS | Clinical Summary ---
Author Organization [facility] Address [address] [place] [address] Care Team Providers Care Gsa Coordinator Name Role Phone Main Benson MD Primary Care Provider [phone]- [phone] Allergies No known active allergies Medications pantoprazole [...] - 07/05/2024 11:59 PM T Hospital Encounter [facility] [address], [facility] Nadja Gomes MD Ramani, Nirali, MD Discharge Disposition: Home or Self Care (Routine Discharge) 07/05/2024 Travel 06/27/2024 Results Follow-Up [place] [facility] [address] [facility] [place] [address] Mara Schwarz, ASSISTANT BASKETBALL COACH CULTURE, ANAEROBIC, CYTOLOGY GENERIC, CULTURE VIRAL RESPIRATORY RAPID, Additional followed-up results: 9 06/06/2024 1:40 PM CDT Telemedicine [facility] Medical Group Multispecialty [facility] [address] [place] [phone] Faby Chin MD Follow Up [...] Sex Assigned at Male 04/01/2024 10:26 AM FIRE INVESTIGATION MANAGER Legal Sex Male 6:19 PM CDT [...] - 2023-2 5 season) 2023 PHQ-2 (Physician [place]) 02/28/2024 Hepatitis C Completed 04/01/2024 Meningococcal B [...] HHS/HCC) HEPATITIS PANEL,ACUTE Routine 04/01/2024 11:11 AM FIRE INVESTIGATION MANAGER Chronic kidney disease, stage 4 (severe) (CMS/HCC HHS/HCC) Fatigue from Last 3 Months or Most Recently Relevant to Health Maintenance Results * (ABNORMAL) PROTEIN TOTAL URINE RANDOM (07/05/2024 11:30 AM CDT) PROTEIN URINE TOTAL RANDOM 583.0(H) <11.9 MG/DL 07/05/2024 12:06 PM CDT [facility] URINE SPECIMEN / Unknown 07/05/2024 11:30 AM CDT us Tanesha Saez MD URINE ORDERABLES Final Result Performing Organization Address [facility]/ZIP Co de Phone Number [facility] [address] [place] [address], * CREATININE URINE RANDOM (07/05/2024 11:30 AM CDT) CREATININE RANDOM (U) 87.3 MG/DL 07/05/2024 12:06 PM CDT [facility] Comment:REFERENCE RANGE NOT ESTABLISHED URINE SPECIMEN / Unknown 07/05/2024 11:30 AM CDT us Tanesha Saez MD URINE ORDERABLES Final Result Performing Organization Address City/[facility]/ZIP Co de Phone Number [facility] [address] [place] [address], * (ABNORMAL) URINALYSIS (07/05/2024 11:30 AM CDT) COLOR (U) YELLOW 07/05/2024 11:50 AM CDT [facility] TRANSPARENCY CLEAR 07/05/2024 11:50 AM CDT [facility] SPECIFIC GRAVITY (U) 1.025 1.000 - 1.025 07/05/2024 11:50 AM CDT [facility] U PH 6.0 5.0 - 8.0 07/05/2024 11:50 AM CDT [facility] LEUKOCYTES (U) NEGATIVE NEGATIVE 07/05/2024 11:50 AM CDT [facility] NITRITES NEGATIVE NEGATIVE 07/05/2024 11:50 AM CDT [facility] PROTEIN RANDOM (U) 3+(A) NEGATIVE 07/05/2024 11:50 AM CDT [facility] GLUCOSE (U) TRACE(A) NEGATIVE 07/05/2024 11:50 AM CDT [facility] KETONES MG/DL (U) NEGATIVE NEGATIVE 07/05/2024 11:50 AM CDT [facility] UROBILINOGEN 0.2 <1.0 EU/DL 07/05/2024 11:50 AM CDT [facility] BILIRUBIN (U) NEGATIVE NEGATIVE 07/05/2024 11:50 AM CDT [facility] BLOOD (U) 2+(A) NEGATIVE 07/05/2024 11:50 AM CDT [facility] WBC/HPF 0-5 0 - 5 /HPF 07/05/2024 11:50 AM CDT [facility] RBC/HPF 0-5 0 - 5 /HPF 07/05/2024 11:50 AM CDT [facility] BACTERIA (U) 1+ /HPF 07/05/2024 11:50 AM CDT [facility] AMORPHOUS SEDIMENT PRESENT 07/05/2024 11:50 AM CDT [facility] OTHER CASTS (U) HYALINE /LPF 11:50 AM CDT [facility] Comment:10-20 URINE SPECIMEN FROM URETHRA / Unknown 07/05/2024 11:30 AM CDT us Tanesha Saez MD URINE ORDERABLES Final Result [facility] [address] [place] [address], [place] [phone] * (ABNORMAL) PTH - INTACT (07/05/2024 11:28 AM CDT) PTH 217.5(H) 18.4 - 80.1 PG/ML 07/05/2024 7:40 PM CDT [facility] Comment: ASSAY PERFORMED BY CHEMILUMINESCENCE METHODOLOGY USING SIEMENS Live[employer]UR XPT REAGENT. PATIENT RESULTS DETERMINED BY ASSAYS USING DIFFERENT MANUFACTURERS FOR METHODS MAY NOT BE COMPARABLE. 07/05/2024 11:2 8 AM CDT Tanesha Saez MD LABORATORY Final Result [facility] [address] [place] [address], [place] [phone] [phone] * (ABNORMAL) RENAL FUNCTION PANEL (07/05/2024 11:28 AM CDT) Pathologist [facility] SODIUM S/P/B 136 136 - 145 MMOL/L 07/05/2024 11:48 AM CDT [facility] POTASSIUM S/P/B 4.8 3.5 - 5.1 MMOL/L 07/05/2024 11:48 AM CDT [facility] CHLORIDE S/P/B 109(H) 98 - 107 MMOL/L 07/05/2024 11:48 AM CDT [facility] CO2 20.8(L) 21.0 - 32.0 MMOL/L 07/05/2024 11:48 AM CDT [facility] GLUCOSE 87 70 - 99 MG/DL 07/05/2024 11:48 AM CDT [facility] Comment: FASTING GLUCOSE 100 TO 125 MG/DL IS CONSISTENT WITH IMPAIRED FASTING GLUCOSE. FASTING GLUCOSE >125 MG/DL IS CONSISTENT WITH DIABETES. RANDOM GLUCOSE >200 MG/DL WITH HYPERGLYCEMIC SYMPTOMS IS CONSISTENT WITH DIABETES. PER ADA GUIDELINES BUN 24 6 - 24 MG/DL 07/05/2024 11:48 AM CDT [facility] CREATININE S/P/B 3.43(H) 0.70 - 1.30 MG/DL 07/05/2024 11:48 AM CDT [facility] CALCIUM S/P/B 7.8(L) 8.4 - 10.5 MG/DL 07/05/2024 11:48 AM CDT [facility] ALBUMIN S/P/B 1.2(L) 3.4 - 5.0 G/DL 07/05/2024 11:48 AM CDT [facility] PHOSPHORUS 5.2(H) 2.6 - 4.7 MG/DL 07/05/2024 11:48 AM CDT [facility] ANION GAP 6.2 5.0 - 15.0 MMOL/L 07/05/2024 11:48 AM CDT [facility] OSMOLALITY (CALC) 285 MOSM/KG 025 11:48 AM CDT [facility] Comment:REFERENCE RANGE NOT ESTABLISHED GFR ESTIMATE 20(L) >89 ML/MIN/1. 73 M2 07/05/2024 11:48 AM CDT [facility] GFR NOTES GFR REFERENCE S: 07/05/2024 11:48 AM CDT [facility] Comment: THE ESTIMATED GFR IS [...] 07/05/2024 11:2 8 AM CDT us Tanesha Saze MD LABORATORY Final Result [facility] [address] [place] [address], * (ABNORMAL) CBC W/DIFF AUTOMATED (07/05/2024 11:28 AM CDT) WBC 6.72 4.00 - 10.80 x10'3/uL 07/05/2024 11:34 AM CDT [facility] RBC 3.24(L) 4.50 - 6.10 x10'6/uL 07/05/2024 11:34 AM CDT [facility] HGB 9.7(L) 13.0 - 18.0 G/DL 07/05/2024 11:34 AM CDT [facility] HCT 30.6(L) 37.0 - 52.0 % 07/05/2024 11:34 AM CDT [facility] MCV 94.4 78.0 - 100.0 FL 07/05/2024 11:34 AM CDT [facility] MCH 29.9 27.0 - 31.0 PG 07/05/2024 11:34 AM CDT [facility] MCHC 31.7(L) 33.0 - 36.0 G/DL 07/05/2024 11:34 AM CDT [facility] RDW 14.3 11.5 - 14.5 % 07/05/2024 11:34 AM CDT [facility] PLT 232 150 - 350 x10'3/uL 07/05/2024 11:34 AM CDT [facility] MPV 9.3 7.4 - 10.4 FL 07/05/2024 11:34 AM CDT [facility] CBC COMMENT NORMAL REFERENCE RANGE NOT ESTABLISHED FOR THE PROPORTIONAL LEUKOCYTE DIFFERENTIAL. 07/05/2024 11:34 AM CDT [facility] NEUTROPHILS % 63.4 % 07/05/2024 11:34 AM CDT [facility] LYMPHOCYTES % 25.0 % 07/05/2024 11:34 AM CDT [facility] MONOCYTES % 6.8 % 07/05/2024 11:34 AM CDT [facility] EOSINOPHILS % 4.2 % 07/05/2024 11:34 AM CDT [facility] BASOPHILS % 0.3 % 07/05/2024 11:34 AM CDT [facility] IMMATURE GRANS % 0.3 % 07/06/19 11:34 AM CDT [facility] NRBC % 0.0 % 07/05/2024 11:34 AM CDT [facility] ABS. NEUTROPHILS 4.26 1.60 - 8.30 x10'3/uL 07/05/2024 11:34 AM CDT [facility] ABS. LYMPHOCYTES 1.68 0.80 - 4.70 x10'3/uL 07/05/2024 11:34 AM CDT [facility] ABS. MONOCYTES 0.46 0.00 - 1.50 x10'3/uL 07/05/2024 11:34 AM CDT [facility] ABS. EOSINOPHILS 0.28 0.00 - 0.40 x10'3/uL 07/05/2024 11:34 AM CDT [facility] ABS. BASOPHILS 0.02 0.00 - 0.20 x10'3/uL 07/05/2024 11:34 AM CDT [facility] ABS. IMMATURE GRANULOCYTES 0.02 0.00 - 0.03 x10'3/uL 07/05/2024 11:34 AM CDT [facility] ABS. NUCLEATED RBC'S 0.00 0.00 - 0.01 x10'3/uL 07/05/2024 11:34 AM CDT [facility] 07/05/2024 11:2 8 AM CDT us Tanesha Saez MD LABORATORY Final Result [facility] [address] [place] [address], * HEPATITIS PANEL,ACUTE (04/01/2024 11:11 AM FIRE INVESTIGATION MANAGER) HEPATITIS B SURFACE AG NON-REACT BEN NON-REACT BEN 04/01/2024 8:48 PM FIRE INVESTIGATION MANAGER [facility] Comment:HBsAg NOT DETECTED. HEP B CORE IGM NON-REACT BEN NON-REACT BEN 04/01/2024 8:48 PM FIRE INVESTIGATION MANAGER [facility] Comment: IgM ANTI HBc NOT DETECTED. DOES NOT EXCLUDE THE POSSIBILITY OF EXPOSURE TO OR INFECTION WITH HBV. NO RETEST REQUIRED. HIGH DOSES OF BIOTIN MAY INTERFERE WITH THIS TEST RESULT. CORRELATION TO CLINICAL HISTORY AND PRESENTATION RECOMMENDED. HAV IGM NON-REACT BNE NON-REACT BEN 04/01/2024 8:48 PM FIRE INVESTIGATION MANAGER [facility] Comment: IgM ANTI HAV NOT DETECTED. DOES NOT EXCLUDE THE POSSIBILITY OF EXPOSURE TO OR INFECTION WITH HAV. LEVELS OF IgM ANTI HAV MAY BE BELOW THE CUTOFF IN EARLY INFECTION. HEPATITIS C AB NON-REACT BEN NON-REACT BEN 04/01/2024 8:48 PM FIRE INVESTIGATION MANAGER [facility] Comment: ANTIBODIES TO HCV NOT DETECTED. DOES NOT EXCLUDE THE POSSIBILITY OF EXPOSURE TO HCV. 04/01/2024 11:1 1 AM FIRE INVESTIGATION MANAGER Carmina Navarro MD LABORATORY Final Result [facility] [address] [place] [address], [id number] from Last 3 Months or Most Recently Relevant to Health Maintenance Insurance C Care Teams Gsa Coordinator Relationship Specialty Start Date End Date Main Benson MD [address] [place] [phone] PCP - General FAMILY PRACTICE 02/09/24
[2024-08-31 21:12] LABS: Hematocrit 25.4 % (42.0-52.0); Hemoglobin 7.8 g/dL (14.0-18.0); Mean Corpuscular HGB Conc 30.7 g/dl (32-36); Mean Corpuscular Hemoglobin 29.7 pg (26-34); Mean Corpuscular Volume 96.6 fl (80-100); Platelet Count Result 250 k/mm3 (150-375); Red Blood Count 2.63 M/mm3 (4.6-6.20); White Blood Count 12.8 K/mm3 (4.5-10.0)
--- NOTE | 2024-08-31 21:13 | ADMGEN ---
This patient, Gerry Farmer, was admitted to IMU Room 214-01. Patient/family oriented to hospital policies and general routines including ID bracelet, bed and alarms, visiting hours, pain management, procedures, bathroom and other care routines, personal items, smoking policy, room service/diet, and visiting hours. Information on how to activate the Rapid Response Team has been discussed. Patient/Family are encouraged to report perceived risks to care and to ask questions if they do not understand what they are told or what they should do.
[2024-08-31 21:25] LABS: Creatine Kinase 107 U/L (55-170); Magnesium 1.7 mg/dL (1.6-2.3)
[2024-08-31 21:33] LABS: Anion Gap 4 mmol/L (4-12); Blood Urea Nitrogen 64 mg/dL (9-20); Calcium 7.9 mg/dL (8.4-10.2); Carbon Dioxide 14 mmol/L (22-30); Chloride 118 mmol/L (98-107); Estimated CRCL calculation 18 ml/min; Estimated Glomerular Filt Rate 17; Glucose 79 mg/dL (65-110); Potassium 4.5 mmol/L (3.4-5.0); Sodium 136 mmol/L (137-145)
[2024-08-31 21:42] LABS: Troponin I 1.300 ng/mL (0.000-0.034)
[2024-08-31 22:00] VITALS: PULSE 81
[2024-08-31] MEDS: SODIUM CHLORIDE 0.45% 1,000 ML 100 ML IV CONT (23:05)
[2024-08-31] MEDS: PANTOPRAZOLE SODIUM IV 40 MG VIAL IV PUSH (23:06)
[2024-08-31 23:43] VITALS: BP 128/65; PULSE 92; RESP 20; TEMP 36.7; O2SAT 100
[2024-09-01] VITALS (24 sets, daily range): BP systolic 108–144; BP diastolic 61–79; PULSE 66–82; RESP 14–20; TEMP 36.2–36.9; O2SAT 99–100
[2024-09-01 00:13] LABS: Troponin I 1.110 ng/mL (0.000-0.034)
[2024-09-01 03:04] LABS: Hematocrit 22.2 % (42.0-52.0); Hemoglobin 7.1 g/dL (14.0-18.0); Immature Granulocyte Percent A 0.7 % (0-0.5); Lymphocytes Absolute Auto 4.21 K/mm3 (0.9-3.2); Mean Corpuscular HGB Conc 32.0 g/dl (32-36); Mean Corpuscular Hemoglobin 30.0 pg (26-34); Mean Corpuscular Volume 93.7 fl (80-100); Nucleated Red Blood Cells Absolute Auto 0.000 K/mm3 (0.0-0.012); Nucleated Red Blood Cells Perc 0.0 % (0.0-0.2); Platelet Count Result 249 k/mm3 (150-375); Red Blood Count 2.37 M/mm3 (4.6-6.20); White Blood Count 10.7 K/mm3 (4.5-10.0)
[2024-09-01 03:16] LABS: Alanine Aminotransferase 9 U/L (6-50); Albumin Level 1.6 g/dL (3.5-5.1); Alkaline Phosphatase 46 U/L (38-126); Anion Gap 2 mmol/L (4-12); Aspartate Amino Transferase 22 U/L (17-59); Bilirubin,Total 0.1 mg/dL (0.2-1.3); Blood Urea Nitrogen 64 mg/dL (9-20); Calcium 7.9 mg/dL (8.4-10.2); Carbon Dioxide 14 mmol/L (22-30); Chloride 119 mmol/L (98-107); Estimated CRCL calculation 18 ml/min; Estimated Glomerular Filt Rate 17; Glucose 82 mg/dL (65-110); Potassium 4.4 mmol/L (3.4-5.0); Sodium 135 mmol/L (137-145); Total Protein 3.8 g/dL (6.3-8.2)
[2024-09-01 03:32] LABS: Troponin I 0.986 ng/mL (0.000-0.034)
[2024-09-01 06:17] LABS: Total Protein Urine Random > 600 mg/dL; Ur Ttl Prot Creatinine Ratio > 6.21 mg/mg (0-0.20)
[2024-09-01] MEDS: LACTATED RINGERS 1,000 ML 150 ML IV CONT (07:19)
[2024-09-01] MEDS: SIMETHICONE ORAL SUSPENSION 20 MG/0.3 ML 30 ML BOTTLE 1.8 ML PO (07:20)
--- NOTE | 2024-09-01 07:28 | WPDANESEPPF ---
Anes - Initial Pre Proc Eval Procedure: Operation Date: 09/01/24 07:30 Proposed Procedures p Esophagogastroduodenoscopy - Chas Centeno MD Date/Time: 09/01/24 07:28 Surgeon: Jacobo Pre Op Diagnosis: GI Bleed, Anemia Pre Op Diagnosis: GI bleed Patient Data Age: 54 Gender: M Height: 1.75 m Weight: 64.5 kg Last Vital Signs Temp 98.5 F 09/01/24 07:13 Pulse 71 09/01/24 07:13 Resp 18 09/01/24 07:13 BP 129/76 09/01/24 07:13 Pulse Ox 100 09/01/24 07:13 O2 Del Method Room Air 09/01/24 07:13 Allergies Allergy/AdvReac Type Severity Reaction Status Date / Time No Known Allergies Allergy Verified 07/11/24 11:34 Home Medications ?Medication ?Instructions ?Recorded ?Confirmed ?Type amlodipine 5 mg tablet 5 mg PO DAILY 08/31/24 08/31/24 History ergocalciferol (vitamin D2) 1,250 1,250 mcg PO WEEKLY 08/31/24 08/31/24 History mcg (50,000 unit) capsule furosemide 20 mg tablet 20 mg PO DAILY 08/31/24 08/31/24 History losartan 50 mg tablet 50 mg PO DAILY 08/31/24 08/31/24 History pantoprazole 40 mg tablet,delayed 40 mg PO DAILY 08/31/24 08/31/24 History release rosuvastatin 40 mg tablet 40 mg PO DAILY 08/31/24 08/31/24 History sildenafil 100 mg tablet 100 mg PO PRN 08/31/24 08/31/24 History Laboratory Tests 08/31/24 08/31/24 09/01/24 21:02 23:37 02:58 WBC 12.8 H K/mm3 10.7 H K/mm3 (4.5-10.0) (4.5-10.0) RBC 2.63 L M/mm3 2.37 L M/mm3 (4.6-6.20) (4.6-6.20) Hgb 7.8 L g/dL 7.1 L g/dL (14.0-18.0) (14.0-18.0) Hct 25.4 L % 22.2 L % (42.0-52.0) (42.0-52.0) MCV 96.6 fl 93.7 fl (80-100) (80-100) MCH 29.7 pg 30.0 pg (26-34) (26-34) MCHC 30.7 L g/dl 32.0 g/dl (32-36) (32-36) RDW 15.3 H % 15.7 H % (11.5-14.5) (11.5-14.5) Plt Count 250 k/mm3 249 k/mm3 (150-375) (150-375) MPV 9.6 fl 9.3 fl (7.4-10.4) (7.4-10.4) Immature Gran % (Auto) 0.7 H % (0-0.5) Neut % (Auto) 47.9 % (45.5-73.1) Lymph % (Auto) 39.3 % (18.3-44.2) Sherman % (Auto) 6.1 % (2.6-8.5) Eos % (Auto) 5.6 H % (0-4.4) Baso % (Auto) 0.4 % (0.2-1.2) Lymph # (Auto) 4.21 H K/mm3 (0.9-3.2) Sherman # (Auto) 0.7 H K/mm3 (0.1-0.6) Eos # (Auto) 0.6 H K/mm3 (0-0.3) Baso # (Auto) 0.0 K/mm3 (0.0-0.1) Abs Immat Gran (auto) 0.08 H K/mm3 (0.00-0.031) Absolute Neuts (auto) 5.1 K/mm3 (1.3-6.7) Absolute Nucleated RBC 0.000 K/mm3 (0.0-0.012) Nucleated RBC % 0.0 % (0.0-0.2) Sodium 136 L mmol/L 135 L mmol/L (137-145) (137-145) Potassium 4.5 mmol/L 4.4 mmol/L (3.4-5.0) (3.4-5.0) Chloride 118 H mmol/L 119 H mmol/L (98-107) (98-107) Carbon Dioxide 14 L mmol/L 14 L mmol/L (22-30) (22-30) Anion Gap 4 mmol/L 2 L mmol/L (4-12) (4-12) BUN 64 H mg/dL 64 H mg/dL (9-20) (9-20) Creatinine 3.74 H mg/dL 3.82 H mg/dL (0.7-1.3) (0.7-1.3) Estim Creat Clear Calc 18 ml/min 18 ml/min Estimated GFR 17 L 17 L (59 - ) (59 - ) Glucose 79 mg/dL 82 mg/dL (65-110) (65-110) Calcium 7.9 L mg/dL 7.9 L mg/dL (8.4-10.2) (8.4-10.2) Phosphorus 5.0 H mg/dL (2.5-4.5) Magnesium 1.7 mg/dL (1.6-2.3) Total Bilirubin 0.1 L mg/dL (0.2-1.3) AST 22 U/L (17-59) ALT 9 U/L (6-50) Alkaline Phosphatase 46 U/L (38-126) Total Creatine Kinase 107 U/L (55-170) Troponin I 1.300 H* ng/mL 1.110 H* ng/mL 0.986 H* ng/mL (0.000-0.034) (0.000-0.034) (0.000-0.034) Total Protein 3.8 L g/dL (6.3-8.2) Albumin 1.6 L g/dL (3.5-5.1) U Random Total Protein Ur Random Sodium Urine Creatinine Protein/Creat Ratio 2 09/01/24 09/01/24 05:42 05:42 WBC RBC Hgb Hct MCV MCH MCHC RDW Plt Count MPV Immature Gran % (Auto) Neut % (Auto) Lymph % (Auto) Sherman % (Auto) Eos % (Auto) Baso % (Auto) Lymph # (Auto) Sherman # (Auto) Eos # (Auto) Baso # (Auto) Abs Immat Gran (auto) Absolute Neuts (auto) Absolute Nucleated RBC Nucleated RBC % Sodium Potassium Chloride Carbon Dioxide Anion Gap BUN Creatinine Estim Creat Clear Calc Estimated GFR Glucose Calcium Phosphorus Magnesium Total Bilirubin AST ALT Alkaline Phosphatase Total Creatine Kinase Troponin I Total Protein Albumin U Random Total Protein > 600 mg/dL Ur Random Sodium 52 meq/L Urine Creatinine 97.3 mg/dL 96.6 mg/dL Protein/Creat Ratio 2 > 6.21 H mg/mg (0-0.20) Patient hx anesthesia problems: none Family hx anesthesia problems: none Results Review: All pre-operative results and documents have been reviewed as part of the pre-operative evaluation. [facility] Past Medical History Medical History AA (alcohol abuse) Tobacco abuse 39 year 1 ppd Substance abuse crack cocaine. last use 2007 Depression Anemia Barretts esophagus GERD (gastroesophageal reflux disease) Gall bladder disease Crohn disease Tuberculosis (2007) Bronchoscopy last month, pending results per patient but pt reports he was ruled out for active TB HLD (hyperlipidemia) HTN (hypertension) Family History Family History Grandparent Acute myocardial infarction Social History Social History Smoking packs per day: 1 Smoking cigarettes per day: 20.0 Years smoked: 39 Smoking pack-years: 39.00 Smoking status: Current every day smoker Tobacco type: cigarettes Second hand tobacco smoke exposure: Yes Alcohol intake: former Drinks per week: 0 Substance use: former Substance use type: crack/cocaine Last use: 2007 Do You Feel Safe in your Home?: Yes Lack of Transportation: No Lack of Food: Never True Current Housing: I Have Housing Concerned About Future Housing: No Difficulty Paying Gas/Electric Bills: No Difficulty Paying for Meds: No Currently Unemployed: No Education: Associate Degree Difficulty w/ Childcare or Family Care: No Spiritual care concerns: No Anes - Eval Final PreProcedure Day of Procedure 09/01/24 07:28 Patient weight: normal Lungs: clear to auscultation and decreased breath sounds Neurological: alert and oriented Last oral intake: >/= 8 hours ASA classification: IV Emergent: yes Anesthetic plan: proceed Anesthesia type and monitoring: general GIVS Results Review: All pre-operative results and documents have been reviewed as part of the pre-operative evaluation. Informed Consent: The patient's anesthetic plan and its attendant risks and benefits were discussed with the patient/family/POA. Questions were solicited and answers provided to the satisfaction of the patient/family/POA.
--- NOTE | 2024-09-01 07:31 | P.CONGI_ITS ---
Assessment and Plan Assessment and plan (1) GI bleed: Qualifiers: GI bleed type/associated pathology: unspecified gastrointestinal hemorrhage type Qualified Code(s): K92.2 - Gastrointestinal hemorrhage, unspecified Code(s): K92.2 - Gastrointestinal hemorrhage, unspecified Status: Acute Assessment and Plan: The patient has an upper GI bleeding from unclear source. Differential diagnosis includes peptic ulcer disease, hemorrhagic gastritis, Suzanne-Naylor tear or malignancy. An EGD will be performed this morning. Will consult Nephrology for follow-up of his worsening renal failure, which might be due to hypervolemia/volume loss. GI Consult Note Consult date/time: 09/01/24 07:31 Reason for consult: Upper GI bleeding HPI: Gerry Farmer, a 54-year-old male, was transferred to our hospital after presenting to [facility] with acute gastrointestinal bleeding. His medical history includes Gonzales's esophagus, colonic polyps, and a heavy smoking habit of one pack per day since age 14. He also has a year-long history of worsening renal function, which his primary care physician has been monitoring. On 08/31/2024 at 3:00 a.m., while otherwise feeling well, he suddenly began vomiting coffee-ground material and passing black, tarry stools. These symptoms were accompanied by weakness and dizziness. In the [place] ED, a digital rectal exam confirmed melena, and he received one unit of packed red blood cells. Since his transfer here, he has had no recurrent episodes of coffee-ground emesis. Review of Systems 2 Review of Systems: All systems reviewed & are unremarkable except as noted in HPI and below PMFSH Past Medical History Medical History Depression Anemia Barretts esophagus GERD (gastroesophageal reflux disease) Gall bladder disease Crohn disease Tuberculosis (2007) HLD (hyperlipidemia) HTN (hypertension) Family History Family History Grandparent Acute myocardial infarction Social History Social History Smoking packs per day: 1 Smoking cigarettes per day: 20.0 Years smoked: 39 Smoking pack-years: 39.00 Smoking status: Current every day smoker Tobacco type: cigarettes Second hand tobacco smoke exposure: Yes Alcohol intake: former Drinks per week: 0 Substance use: former Substance use type: crack/cocaine Last use: 2007 Do You Feel Safe in your Home?: Yes Lack of Transportation: No Lack of Food: Never True Current Housing: I Have Housing Concerned About Future Housing: No Difficulty Paying Gas/Electric Bills: No Difficulty Paying for Meds: No Currently Unemployed: No Education: Associate Degree Difficulty w/ Childcare or Family Care: No Spiritual care concerns: No Meds Home Medications and Allergies Home Medications ?Medication ?Instructions ?Recorded ?Confirmed ?Type amlodipine 5 mg tablet 5 mg PO DAILY 08/31/24 08/31/24 History ergocalciferol (vitamin D2) 1,250 1,250 mcg PO WEEKLY 08/31/24 08/31/24 History mcg (50,000 unit) capsule furosemide 20 mg tablet 20 mg PO DAILY 08/31/24 08/31/24 History losartan 50 mg tablet 50 mg PO DAILY 08/31/24 08/31/24 History pantoprazole 40 mg tablet,delayed 40 mg PO DAILY 08/31/24 08/31/24 History release rosuvastatin 40 mg tablet 40 mg PO DAILY 08/31/24 08/31/24 History sildenafil 100 mg tablet 100 mg PO PRN 08/31/24 08/31/24 History Allergies Allergy/AdvReac Type Severity Reaction Status Date / Time No Known Allergies Allergy Verified 07/11/24 11:34 Vital Signs Vital Signs - 24 hr 08/31/24 20:11 08/31/24 20:32 08/31/24 22:00 Temperature 98.2 F Pulse Rate 82 89 81 Respiratory Rate 20 Blood Pressure 148/86 H Pulse Oximetry 100 Oxygen Delivery 08/31/24 23:43 09/01/24 00:00 09/01/24 00:00 Temperature 98.0 F Pulse Rate 92 79 Respiratory Rate 20 Blood Pressure 128/65 Pulse Oximetry 100 Oxygen Delivery Room Air 09/01/24 02:00 09/01/24 04:00 09/01/24 04:00 Temperature 98.1 F Pulse Rate 76 77 Respiratory Rate 20 Blood Pressure 119/74 Pulse Oximetry 99 Oxygen Delivery Room Air 09/01/24 04:00 09/01/24 06:00 09/01/24 07:13 Temperature 98.5 F Pulse Rate 82 75 71 Respiratory Rate 18 Blood Pressure 129/76 Pulse Oximetry 100 Oxygen Delivery Room Air Exam 2 Const: General: cooperative and healthy appearing Resp: Effort & Inspection: normal respiratory effort and able to speak in complete sentences Auscultation: clear to auscultation bilaterally Cardio: Rate: regular rate Rhythm: regular rhythm GI: Inspection: normal to inspection GI Palp: No No hepatosplenomegaly present Auscultation: normal bowel sounds Rectal Exam: deferred Skin: General skin exam: normal color Psych: Appearance: grossly normal Mental Status: mental status grossly normal Results Labs 09/01/24 02:58 09/01/24 02:58 Labs: Short CBC 08/31/24 09/01/24 Range/Units 21:02 02:58 WBC 12.8 H 10.7 H (4.5-10.0) K/mm3 Hgb 7.8 L 7.1 L (14.0-18.0) g/dL Hct 25.4 L 22.2 L (42.0-52.0) % Plt Count 250 249 (150-375) k/mm3 [facility] 08/31/24 09/01/24 21:02 02:58 Sodium 136 L 135 L Potassium 4.5 4.4 Chloride 118 H 119 H Carbon Dioxide 14 L 14 L BUN 64 H 64 H Creatinine 3.74 H 3.82 H Glucose 79 82 Calcium 7.9 L 7.9 L Cardiac Enzymes 08/31/24 08/31/24 09/01/24 Range/Units 21:02 23:37 02:58 Total Creatine Kinase 107 (55-170) U/L Troponin I 1.300 H* 1.110 H* 0.986 H* (0.000-0.034) ng/mL Liver Function 09/01/24 Range/Units 02:58 Total Bilirubin 0.1 L (0.2-1.3) mg/dL AST 22 (17-59) U/L ALT 9 (6-50) U/L Alkaline Phosphatase 46 (38-126) U/L Albumin 1.6 L (3.5-5.1) g/dL
[2024-09-01] MEDS: BENZOCAINE (*SP) 60 ML SPRAY CAN (HURRICAINE) 1 SPRAY MUCOUS MEM (07:55)
--- NOTE | 2024-09-01 07:57 | P.PNAN_ITS ---
Anes - Eval Final PreProcedure Day of Procedure 09/01/24 07:57 Patient weight: normal Heart: regular rate and rhythm Lungs: decreased breath sounds Airway: Mallampati scale class III Neurological: alert and oriented Last oral intake: >/= 8 hours ASA classification: IV Emergent: no Anesthetic plan: proceed Anesthesia type and monitoring: general GIVS and standard monitoring Results Review: All pre-operative results and documents have been reviewed as part of the pre- operative evaluation. Informed Consent: The patient's anesthetic plan and its attendant risks and benefits were discussed with the patient/family/POA. Questions were solicited and answers provided to the satisfaction of the patient/family/POA.
--- NOTE | 2024-09-01 08:12 | S_PTH ---
PATIENT: Gerry Farmer LOC: [facility]U #:[id number] AGE/SX: 54/M ROOM: 214 RE09/01/[address]: Dennise Casillas MD : 1970 BED: 01 DIS: 09/02/2024 SPEC #: [id number] RECD: 09/02/24 07:43 STATUS: TENZIN RE #: [id number] DILEEP: 09/01/24 08:[address]: Chas Centeno DEPT: [facility] Surgical RECD BY: Marti Erwin ENTERED: 09/02/24 07:44 SP TYPE: Surgical OTHR DR: MD Dennise Fernandze MD Sriraj T. Kanungo, MD Bruce Weber, Tissues: A - Gastric Biopsy B - Gastric Biopsy Procedures: Hematoxylin and Eosin Stain Gross and Microscopic Level 4
--- NOTE | 2024-09-01 08:20 | WPDGIPROGNO ---
Progress Note: A&P Assessment and Plan (1) Duodenal bulb ulcer: Code(s): K26.9 - Duodenal ulcer, unspecified as acute or chronic, without hemorrhage or perforation Status: Acute Assessment and Plan: See EGD report. The patient has a non bleeding duodenal ulcer. The chances of rebleeding are less than 5%. Will feed him with a full liquid diet today and switch from IV to oral pantoprazole, 40 mg biD. Will observe overnight and most likely discharge tomorrow morning. Subjective Date/time seen: 09/01/24 08:20 Objective Data Vital Signs Vital Signs: Vital Signs - 24 hr 08/31/24 20:11 08/31/24 20:32 08/31/24 22:00 Temperature 98.2 F Pulse Rate 82 89 81 Respiratory Rate 20 Blood Pressure 148/86 H Pulse Oximetry 100 Oxygen Delivery 08/31/24 23:43 09/01/24 00:00 09/01/24 00:00 Temperature 98.0 F Pulse Rate 92 79 Respiratory Rate 20 Blood Pressure 128/65 Pulse Oximetry 100 Oxygen Delivery Room Air 09/01/24 02:00 09/01/24 04:00 09/01/24 04:00 Temperature 98.1 F Pulse Rate 76 77 Respiratory Rate 20 Blood Pressure 119/74 Pulse Oximetry 99 Oxygen Delivery Room Air 09/01/24 04:00 09/01/24 06:00 09/01/24 07:13 Temperature 98.5 F Pulse Rate 82 75 71 Respiratory Rate 18 Blood Pressure 129/76 Pulse Oximetry 100 Oxygen Delivery Room Air Intake/Output Intake/Output: Intake & Output 08/29/24 08/30/24 08/31/24 09/01/24 23:59 23:59 23:59 23:59 Intake Total 320 Output Total 300 Balance 20 Meds/Results Medications: Active Medications Generic Name Dose Route Start Last Admin Trade Name Freq PRN Reason Stop Dose Admin Acetaminophen 650 mg 08/31/24 20:38 Acetaminophen 325 Mg Tablet PO Q4H PRN Mild Pain (1-3) or Fever Hydrocodone Bitart/Acetaminophen 1 tab 08/31/24 20:38 Hydrocodone/Acetaminophen (*Crx) 5-325 Mg Tablet PO Q4H PRN Moderate Pain (4-6) Amlodipine Besylate 5 mg 09/01/24 09:00 Amlodipine Besylate 5 Mg Tablet PO DAILY [facility] Ergocalciferol 1,250 mcg 09/04/24 09:00 Ergocalciferol (Vitamin D2) 1,250 Mcg (50,000 Units) Capsule PO WEEKLY [facility] Furosemide 20 mg 09/01/24 09:00 Furosemide 20 Mg Tablet PO DAILY [facility] Sodium Chloride 1,000 mls @ 100 mls/hr 08/31/24 20:40 09/01/24 04:33 Sodium Chloride 0.45% IV CONT 100 mls/hr .Q10H [facility] Infusion Lactated Ringer's 1,000 mls @ 150 mls/hr 09/01/24 06:50 09/01/24 08:14 Lr - Lactated Ringers Iv IV CONT 150 mls/hr .Q6H40M [facility] Losartan Potassium 50 mg 09/01/24 09:00 Losartan Potassium 50 Mg Tablet PO DAILY [facility] Morphine Sulfate 2 mg 08/31/24 20:38 Morphine Sulfate (*Crx) 2 Mg/Ml Inj IV PUSH Q4H PRN Pain Rated 7-10 Ondansetron HCl 4 mg 08/31/24 20:38 Ondansetron Inj 4 Mg/2 Ml Vial IV PUSH Q6H PRN Nausea And Vomiting Pantoprazole Sodium 40 mg 09/01/24 09:00 Pantoprazole 40 Mg Tablet PO Q12HR [facility] Rosuvastatin Calcium 40 mg 09/01/24 09:00 Rosuvastatin 20 Mg Tablet PO DAILY [facility] Labs Labs: Laboratory Results - last 24 hr 08/31/24 08/31/24 09/01/24 21:02 23:37 02:58 WBC 12.8 H 10.7 H RBC 2.63 L 2.37 L Hgb 7.8 L 7.1 L Hct 25.4 L 22.2 L MCV 96.6 93.7 MCH 29.7 30.0 MCHC 30.7 L 32.0 RDW 15.3 H 15.7 H Plt Count 250 249 MPV 9.6 9.3 Immature Gran % (Auto) 0.7 H Neut % (Auto) 47.9 Lymph % (Auto) 39.3 Billings % (Auto) 6.1 Eos % (Auto) 5.6 H Baso % (Auto) 0.4 Lymph # (Auto) 4.21 H Bill[place] # (Auto) 0.7 H Eos # (Auto) 0.6 H Baso # (Auto) 0.0 Abs Immat Gran (auto) 0.08 H Absolute Neuts (auto) 5.1 Absolute Nucleated RBC 0.000 Nucleated RBC % 0.0 Sodium 136 L 135 L Potassium 4.5 4.4 Chloride 118 H 119 H Carbon Dioxide 14 L 14 L Anion Gap 4 2 L BUN 64 H 64 H Creatinine 3.74 H 3.82 H Estim Creat Clear Calc 18 18 Estimated GFR 17 L 17 L Glucose 79 82 Calcium 7.9 L 7.9 L Phosphorus 5.0 H Magnesium 1.7 Total Bilirubin 0.1 L AST 22 ALT 9 Alkaline Phosphatase 46 Total Creatine Kinase 107 Troponin I 1.300 H* 1.110 H* 0.986 H* Total Protein 3.8 L Albumin 1.6 L U Random Total Protein Ur Random Sodium Urine Creatinine Protein/Creat Ratio 2 09/01/24 09/01/24 05:42 05:42 WBC RBC Hgb Hct MCV MCH MCHC RDW Plt Count MPV Immature Gran % (Auto) Neut % (Auto) Lymph % (Auto) Bill[place] % (Auto) Eos % (Auto) Baso % (Auto) Lymph # (Auto) Billings # (Auto) Eos # (Auto) Baso # (Auto) Abs Immat Gran (auto) Absolute Neuts (auto) Absolute Nucleated RBC Nucleated RBC % Sodium Potassium Chloride Carbon Dioxide Anion Gap BUN Creatinine Estim Creat Clear Calc Estimated GFR Glucose Calcium Phosphorus Magnesium Total Bilirubin AST ALT Alkaline Phosphatase Total Creatine Kinase Troponin I Total Protein Albumin U Random Total Protein > 600 Ur Random Sodium 52 Urine Creatinine 97.3 96.6 Protein/Creat Ratio 2 > 6.21 H
[2024-09-01 09:21] LABS: HPYLORIRESULT Negative (Negative)
[2024-09-01] MEDS: ROSUVASTATIN 20 MG TABLET 40 MG PO (09:32)
[2024-09-01] MEDS: PANTOPRAZOLE 40 MG TABLET PO ×2 (09:32→20:29)
[2024-09-01] MEDS: FUROSEMIDE 20 MG TABLET PO (09:32)
[2024-09-01] MEDS: LOSARTAN POTASSIUM 50 MG TABLET PO (09:32)
--- NOTE | 2024-09-01 10:59 | P.CONNP_ITS ---
Assessment and Plan Assessment and plan (1) Acute kidney injury: Code(s): N17.9 - Acute kidney failure, unspecified Status: Acute Assessment and Plan: * creatinine above basline by admission labs * this likely due to anemia in the context of his advanced CKD * however, cannot discount an element of CKD progression * follow repeat labs and UOP (2) Stage 4 chronic kidney disease: Code(s): N18.4 - Chronic kidney disease, stage 4 (severe) Status: Chronic Assessment and Plan: * baseline creatinine runs around 2.9 - 3.5mg/dl over the last 6 months * outpatient labs on 07/05/24 -- creatinine was 3.42mg/dl * known history of nephrotic range proteinuria/syndrome since June 2023 * due to biopsy proven focal segmental glomerulosclerosis (x 2) * renal biopsy 07/06/23: 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 Tanesha Saez ([facility] in [place]) -- last seen on 05/23/24 * was started with prednisone with prophylaxis (bactrim and PPI) along with losartan * was to follow-up with her in a month to assess response to therapy (not sure he ever did...) * continue supportive therapy (3) GI bleed: Qualifiers: GI bleed type/associated pathology: unspecified gastrointestinal hemorrhage type Qualified Code(s): K92.2 - Gastrointestinal hemorrhage, unspecified Code(s): K92.2 - Gastrointestinal hemorrhage, unspecified Status: Acute Assessment and Plan: * as noted on presentation * dark emesis and dark tarry stools * hgb of 6.9 on admission * hemoccult positive * PRBC transfusion per protocol * GI recommendations noted * s/p EGD (on 09/01) with results noted: * mild patchy chronic superficial gastritis that was erythematous and with non-erosive changes * single crater acute benign ulcer in the apex of the duodenal bulb which was clean based without signs of bleeding * oral PPI * anemia complicated by known CKD * consider empiric SEVEN/Epogen * advance diet as tolerated (4) Elevated troponin: Code(s): R79.89 - Other specified abnormal findings of blood chemistry Status: Acute Assessment and Plan: * noted on admission * Cardiology consulted * suspect demand ischemia in the setting of anemia (5) Metabolic acidosis: Code(s): E87.20 - Acidosis, unspecified Status: Acute Assessment and Plan: * due to advanced CKD * lactic acid normal * oral sodium bicarbonate to compensate (6) HTN (hypertension): Qualifiers: Hypertension type: primary hypertension Qualified Code(s): I10 - Essential (primary) hypertension Code(s): I10 - Essential (primary) hypertension Status: Chronic Assessment and Plan: * reasonable control * continue home BP medications * follow trend of hemodynamics Greater than 20 minutes was spent in detailed review of numerous electronic medical records from his 2 previous oval or circular glass cutter's including review of his renal biopsy in June of 2023 as well as preliminary review of his renal biopsy in April of 2024 and his noted history of kidney disease in general. I will continue to follow the patient with you while he remains hospitalized and make further recommendations as deemed necessary. Thank you for allowing me to participate in the care of this patient. L History of Present Illness Reason for Consult Consult date: 09/01/24 Reason for consult: chronic renal failure Chief Complaint Chief complaint: GI bleed History of Present Illness Narrative: The patient is a 54-year-old male with a past medical history as outlined below who presented to [facility] emergency room with complaints of nausea, vomiting, and diarrhea. According to the patient and review of the electronic medical records, the symptoms apparently started around 3:00 a.m. on the morning of admission. Further complicating matters is the fact that the patient stated that the his vomit as well as his stools have a ?black color? to them. He did not specifically say that his emesis was coffee-ground in appearance. Following the onset of the symptoms, he states he has been having issues with diarrhea every 20-30 minutes in association with mild abdominal discomfort localized to his umbilical area. The abdominal pain is nonradiating and fluctuates with no specific aggravating or relieving factors. Given the persistence of the symptoms since its onset, he presented to the ER at [place] for further assessment. Workup and evaluation emergency room demonstrated the patient to be hemodynamically stable and in no acute distress. Subsequent testing demonstrated white blood cell count 11.7, hemoglobin 6.9, normal coagulation studies, mild hyponatremia with a sodium of 134, creatinine of 3.72, BUN of 66 calcium 7.4, and of albumin 1.8. His urinalysis was significant for 3+ protein, 1+ glucose, 1+ blood and he was noted be Hemoccult positive. His EKG showed sinus rhythm without any acute ischemic changes. Given his renal dysfunction in association with anemia and possible GI bleed, he was transferred to [facility] for further evaluation and therapy. Since his admission, he has already been seen by Gastroenterology and underwent an EGD this AM with findings of mild patchy chronic superficial gastritis that was erythematous and with non-erosive changes along with a single crater acute benign ulcer in the apex of the duodenal bulb which was clean based without signs of bleeding along with his known history of Gonzales's esophagus. He did receive a packed red blood cell transfusion overnight as well. Renal consultation was requested due to his chronic kidney disease. The patient is known that he has had chronic kidney disease since at least June of 2023 as he was following with a oval or circular glass cutter for this issue. However, on further questioning, it would seem the patient is not completely clear as to the etiology of his chronic kidney disease although he did apparently recently undergo a renal biopsy from his current oval or circular glass cutter but he is unaware of the results of this test. I was able to find significantly more information on further research with regard to his chronic kidney disease as outlined in the assessment/plan. Currently, at the time my evaluation, he appears to be in no acute distress. Review of Systems 2 Review of Systems: As per HPI. [facility] Past Medical History Medical History (Updated 09/02/24 @ 12:27 by Kal Ayers MD) Hypertension Chronic kidney disease FSGS (focal segmental glomerulosclerosis) AA (alcohol abuse) Tobacco abuse 39 year 1 ppd Substance abuse crack cocaine. last use 2007 Depression Anemia Barretts esophagus GERD (gastroesophageal reflux disease) Gall bladder disease Crohn disease Tuberculosis (2007) Bronchoscopy last month, pending results per patient but pt reports he was ruled out for active TB HLD (hyperlipidemia) HTN (hypertension) Family History Family History Grandparent Acute myocardial infarction Social History Social History (System 09/02/24 @ 07:28 by Emmanuelle Murillo) Social History: Caffeine-soda Smoking packs per day: 1 Smoking cigarettes per day: 20.0 Years smoked: 39 Smoking pack-years: 39.00 Smoking status: Current every day smoker Tobacco type: cigarettes Second hand tobacco smoke exposure: Yes Alcohol intake: former Drinks per week: 0 Alcohol use details: none in 14 yrs Substance use: former Substance use type: crack/cocaine Last use: 2007 Do You Feel Safe in your Home?: Yes Lack of Transportation: No Lack of Food: Never True Current Housing: I Have Housing Concerned About Future Housing: No Difficulty Paying Gas/Electric Bills: No Difficulty Paying for Meds: No Currently Unemployed: No Education: Associate Degree Difficulty w/ Childcare or Family Care: No Living arrangements: with friend(s) Spiritual care concerns: No Meds Home Medications and Allergies Home Medications ?Medication ?Instructions ?Recorded ?Confirmed ?Type amlodipine 5 mg tablet 5 mg PO DAILY 02/05/24 05/30/24 History ergocalciferol (vitamin D2) 1,250 1,250 mcg PO WEEKLY 02/05/24 05/30/24 History mcg (50,000 unit) capsule furosemide 20 mg tablet 20 mg PO QAM 02/05/24 05/30/24 History pantoprazole 40 mg tablet,delayed 40 mg PO QAM 02/05/24 05/30/24 History release rosuvastatin 40 mg tablet 40 mg PO DAILY 02/05/24 05/30/24 History sildenafil 100 mg tablet 100 mg PO DIRECTED 03/26/24 05/30/24 History amlodipine 5 mg tablet 5 mg PO DAILY 08/31/24 08/31/24 History ergocalciferol (vitamin D2) 1,250 1,250 mcg PO WEEKLY 08/31/24 08/31/24 History mcg (50,000 unit) capsule furosemide 20 mg tablet 20 mg PO DAILY 08/31/24 08/31/24 History losartan 50 mg tablet 50 mg PO DAILY 08/31/24 08/31/24 History pantoprazole 40 mg tablet,delayed 40 mg PO DAILY 08/31/24 08/31/24 History release rosuvastatin 40 mg tablet 40 mg PO DAILY 08/31/24 08/31/24 History sildenafil 100 mg tablet 100 mg PO PRN 08/31/24 08/31/24 History Allergies Allergy/AdvReac Type Severity Reaction Status Date / Time No Known Allergies Allergy Verified 09/02/24 07:28 Vital Signs Vital Signs Temp Pulse Resp BP Pulse Ox O2 Del Method 09/01/24 10:00 97.2 F L 75 20 144/79 H 100 09/01/24 10:00 66 09/01/24 08:44 72 18 115/62 100 Room Air 09/01/24 08:34 78 18 114/67 100 Room Air 09/01/24 08:24 73 18 108/61 100 Room Air 09/01/24 07:13 98.5 F 71 18 129/76 100 Room Air 09/01/24 06:00 75 09/01/24 04:00 82 09/01/24 04:00 98.1 F 77 20 119/74 99 09/01/24 04:00 Room Air 09/01/24 02:00 76 09/01/24 00:00 79 09/01/24 00:00 Room Air 08/31/24 23:43 98.0 F 92 20 128/65 100 08/31/24 22:00 81 08/31/24 20:32 98.2 F 89 20 148/86 H 100 08/31/24 20:11 82 Exam 2 Narrative: GENERAL APPEARANCE: well developed well nourished male in no acute distress HEENT: normocephalic, atraumatic, normal conjunctiva and sclera, nares patient NECK: no lymphadenopathy, thyromegaly, or JVD MOUTH: normal lips, teeth, and gums CARDIOVASCULAR: RRR, normal S1 and S2, no rub RESPIRATORY: clear to auscultation bilaterally ABDOMEN: soft, nontender, nondistended, positive bowel sounds present EXTREMITIES: no evidence of cyanosis, clubbing, or edema NEUROLOGICAL: alert and oriented x 3; CN II - XII intact bilaterally; no focal deficits noted Results Lab Results 09/02/24 07:22 09/02/24 07:22 Lab results: Most recent lab results Calcium 7.9 mg/dL (8.4-10.2) L 09/01/24 02:58 Phosphorus 5.0 mg/dL (2.5-4.5) H 08/31/24 21:02 Magnesium 1.7 mg/dL (1.6-2.3) 08/31/24 21:02 Urine Creatinine 96.6 mg/dL 09/01/24 05:42 Urine Creatinine 97.3 mg/dL 09/01/24 05:42
--- NOTE | 2024-09-01 13:31 | P.CONCA_ITS ---
Assessment and Plan Assessment and plan (1) Elevated troponin: Code(s): R79.89 - Other specified abnormal findings of blood chemistry Status: Acute Plan Acute anemia secondary to GI bleeding Lower GI bleeding Mild elevated troponin likely demand ischemia setting of acute anemia Plan Transthoracic echocardiogram Treatment & control of underlying anemia and GI bleeding serial troponin to check for the trend in troponin level History of Present Illness History of Present Illness Consult date/time: 09/01/24 13:31 Reason For Visit: GI bleed Narrative: 54-year-old male patient presents to the hospital with recurrent episodes of nausea vomiting. He has coffee-ground emesis followed by black emesis. He had no prior history of similar episodes. He denies any chest pain. He has been complaining of mid abdominal discomfort and pain since yesterday. On presentation was found to have low hemoglobin 6.9. Review of Systems 2 Review of Systems: All systems reviewed & are unremarkable except as noted in HPI and below PMFSH Past Medical History Medical History AA (alcohol abuse) Tobacco abuse 39 year 1 ppd Substance abuse crack cocaine. last use 2007 Depression Anemia Barretts esophagus GERD (gastroesophageal reflux disease) Gall bladder disease Crohn disease Tuberculosis (2007) Bronchoscopy last month, pending results per patient but pt reports he was ruled out for active TB HLD (hyperlipidemia) HTN (hypertension) Family History Family History Grandparent Acute myocardial infarction Social History Social History Smoking packs per day: 1 Smoking cigarettes per day: 20.0 Years smoked: 39 Smoking pack-years: 39.00 Smoking status: Current every day smoker Tobacco type: cigarettes Second hand tobacco smoke exposure: Yes Alcohol intake: former Drinks per week: 0 Substance use: former Substance use type: crack/cocaine Last use: 2007 Do You Feel Safe in your Home?: Yes Lack of Transportation: No Lack of Food: Never True Current Housing: I Have Housing Concerned About Future Housing: No Difficulty Paying Gas/Electric Bills: No Difficulty Paying for Meds: No Currently Unemployed: No Education: Associate Degree Difficulty w/ Childcare or Family Care: No Spiritual care concerns: No Meds Home Medications and Allergies Home Medications ?Medication ?Instructions ?Recorded ?Confirmed ?Type amlodipine 5 mg tablet 5 mg PO DAILY 08/31/24 08/31/24 History ergocalciferol (vitamin D2) 1,250 1,250 mcg PO WEEKLY 08/31/24 08/31/24 History mcg (50,000 unit) capsule furosemide 20 mg tablet 20 mg PO DAILY 08/31/24 08/31/24 History losartan 50 mg tablet 50 mg PO DAILY 08/31/24 08/31/24 History pantoprazole 40 mg tablet,delayed 40 mg PO DAILY 08/31/24 08/31/24 History release rosuvastatin 40 mg tablet 40 mg PO DAILY 08/31/24 08/31/24 History sildenafil 100 mg tablet 100 mg PO PRN 08/31/24 08/31/24 History Allergies Allergy/AdvReac Type Severity Reaction Status Date / Time No Known Allergies Allergy Verified 07/11/24 11:34 Vital Signs Vital Signs - 24 hr 08/31/24 20:11 08/31/24 20:32 08/31/24 22:00 Temperature 36.8 C Pulse Rate 82 89 81 Respiratory Rate 20 Blood Pressure 148/86 H Pulse Oximetry 100 Oxygen Delivery 08/31/24 23:43 09/01/24 00:00 09/01/24 00:00 Temperature 36.7 C Pulse Rate 92 79 Respiratory Rate 20 Blood Pressure 128/65 Pulse Oximetry 100 Oxygen Delivery Room Air 09/01/24 02:00 09/01/24 04:00 09/01/24 04:00 Temperature 36.7 C Pulse Rate 76 77 Respiratory Rate 20 Blood Pressure 119/74 Pulse Oximetry 99 Oxygen Delivery Room Air 09/01/24 04:00 09/01/24 06:00 09/01/24 07:13 Temperature 36.9 C Pulse Rate 82 75 71 Respiratory Rate 18 Blood Pressure 129/76 Pulse Oximetry 100 Oxygen Delivery Room Air 09/01/24 08:24 09/01/24 08:34 09/01/24 08:44 Temperature Pulse Rate 73 78 72 Respiratory Rate 18 18 18 Blood Pressure 108/61 114/67 115/62 Pulse Oximetry 100 100 100 Oxygen Delivery Room Air Room Air Room Air 09/01/24 10:00 09/01/24 10:00 09/01/24 11:49 Temperature 36.2 C L 36.3 C L Pulse Rate 66 75 75 Respiratory Rate 20 20 Blood Pressure 144/79 H 131/77 Pulse Oximetry 100 100 Oxygen Delivery Exam 2 Const: General: comfortable and no acute distress Other: , male, nontoxic appearance HENMT: Face/Nose/Sinus: Normal nares present Mouth: Yes moist mucous membranes Eyes: General: appearance normal, both eyes and all related structures S clera: sclerae normal Pupils: Equal, round and reactive pupils present E OM: EOMs intact bilaterally Resp: Effort & Inspection: normal respiratory effort Auscultation: clear to auscultation bilaterally Cardio: Rate: regular rate Rhythm: regular rhythm Other: S1-S2 present without murmur, rub, ectopy GI: Other: Abdomen soft, nondistended, nontender. Normoactive bowel sounds in all quadrants. Skin: General skin exam: normal color and no rashes or lesions noted W ounds: no wounds Neuro: Speech: normal speech Motor exam (neuro): 5/5 motor strength present throughout Sensory Exam: normal sensation Other: A&O x4 Extrem: General: normal to inspection Psych: Mental Status: mental status grossly normal Affect: normal affect Other: good insight judgment, pleasant Results Labs and Meds 09/01/24 02:58 09/01/24 02:58 Lab results: Cardiac Enzymes 08/31/24 08/31/24 09/01/24 Range/Units 21:02 23:37 02:58 AST 22 (17-59) U/L Troponin I 1.300 H* 1.110 H* 0.986 H* (0.000-0.034) ng/mL CBC 08/31/24 09/01/24 Range/Units 21:02 02:58 WBC 12.8 H 10.7 H (4.5-10.0) K/mm3 RBC 2.63 L 2.37 L (4.6-6.20) M/mm3 Hgb 7.8 L 7.1 L (14.0-18.0) g/dL Hct 25.4 L 22.2 L (42.0-52.0) % Plt Count 250 249 (150-375) k/mm3 Lymph # (Auto) 4.21 H (0.9-3.2) K/mm3 Swain # (Auto) 0.7 H (0.1-0.6) K/mm3 Eos # (Auto) 0.6 H (0-0.3) K/mm3 Baso # (Auto) 0.0 (0.0-0.1) K/mm3 Comprehensive Metabolic Panel 08/31/24 09/01/24 Range/Units 21:02 02:58 Sodium 136 L 135 L (137-145) mmol/L Potassium 4.5 4.4 (3.4-5.0) mmol/L Chloride 118 H 119 H (98-107) mmol/L Carbon Dioxide 14 L 14 L (22-30) mmol/L BUN 64 H 64 H (9-20) mg/dL Creatinine 3.74 H 3.82 H (0.7-1.3) mg/dL Glucose 79 82 (65-110) mg/dL Calcium 7.9 L 7.9 L (8.4-10.2) mg/dL AST 22 (17-59) U/L ALT 9 (6-50) U/L Alkaline Phosphatase 46 (38-126) U/L Total Protein 3.8 L (6.3-8.2) g/dL Albumin 1.6 L (3.5-5.1) g/dL Intake and Output 08/31/24 09/01/24 09/01/24 23:59 07:59 15:59 Intake Total 320 220 Output Total 300 Balance 20 220 Intake: IV 320 100 Lactated Ringers 1,000 ml @ 150 100 mls/hr IV CONT .Q6H40M [facility] Rx# :[id number] Sodium Chloride 0.45% 1,000 ml 320 @ 100 mls/hr IV CONT .Q10H [facility] Rx#:[id number] Oral 120 Output: Urine 300 Other: Intake, Other Source NPO Patient Weight 09/01/24 23:59 Weight 64.5 kg
--- NOTE | 2024-09-01 15:04 | P.PNIM_ITS ---
Progress Note: A&P Assessment and Plan (1) GI bleed: Qualifiers: GI bleed type/associated pathology: unspecified gastrointestinal hemorrhage type Qualified Code(s): K92.2 - Gastrointestinal hemorrhage, unspecified Code(s): K92.2 - Gastrointestinal hemorrhage, unspecified Status: Acute Assessment and Plan: Dark emesis and dark tarry stools starting at 3:00 a.m. on 08/31. - Hgb 6.9, plan for 1u of PRBC - hemoccult+ - not on anticoagulation - unable to perform CTA due to patient?s renal function - GI consulted, awaiting recs plan for upper EGD tomorrow on 09/01 - trend H&H Q4H - started on pantoprazole BID - last colonoscopy in 2022, not on file - no EGD on file - monitor hemodynamic stability and telemetry, admit to IMU (2) Acute renal failure: Qualifiers: Acute renal failure type: unspecified Qualified Code(s): N17.9 - Acute kidney failure, unspecified Code(s): N17.9 - Acute kidney failure, unspecified Status: Acute Assessment and Plan: - check renal ultrasound - check CK, urine sodium, protein/creatinine, phos, mag - UA:? 3+ protein 1+ glucose, 1+ blood, 3-5 RBC - bladder scan post void x1 - monitor I&Os - reviewed home medications, will hold Lasix 20 mg - nephrology consulted (3) Elevated troponin: Code(s): R79.89 - Other specified abnormal findings of blood chemistry Status: Acute Assessment and Plan: - EKG, initial: showed sinus rhythm, rate 84, moderate voltage criteria for LVH, type 3 Brugada pattern, possible septal VT of indeterminate age.? Awaiting formal read. - repeat EKG upon arrival - check CXR - Troponin: 1.11 -> 1.3, trend - hold ASA admin, concern for GI Bleed - SL nitro PRN - cardiology consulted - no previous stress test of echo on file - continue rosuvastatin - telemetry monitoring (4) HTN (hypertension): Qualifiers: Hypertension type: primary hypertension Qualified Code(s): I10 - Essential (primary) hypertension Code(s): I10 - Essential (primary) hypertension Status: Chronic Assessment and Plan: - chronic, currently 141/88 - continue home medications:? Amlodipine, losartan , Lasix - monitor Plan 54 y/o male presented with c/o abdomen pain, nausea, vomiting and diarrhea, stated his stools are black, and his Hgb was 7.8, patient was seen by GI and had EGD to further evaluate, it showed poe's mucosa and there was acute bleeding, patient also has elevated tropes, seen by registered nurse practitioner suspect type II VT 2/2 demand ischemia due to stress of pain, nausea and vomiting unlikely ACS. upon arrival patient BUN and Scr are elevated suspect 2/2 vomiting, diarrhea and poor PO intake, this has resulted in metabolic acidosis, patient is being hydrated, and give bicarb PO, patient will be seen by fish and game [employer] manager and further recommendation to follow. Diet: NPO GI Prophylaxis: Pantoprazole b.i.d. DVT Prophylaxis: SCDs IV fluids: NS 100 mL/hr Lines/Tubes: peripheral IV Code Status: full code Subjective Date/time seen: 09/01/24 15:04 Interval history: GI Bleed Narrative: 54 y/o M with PMH of Poe's, HLD, HTN, GERD, questionable lung mass, and colonic polyps presents with N/V/D. The patient presented to [place] ED on 08/31 for further evaluation of nausea, vomiting, diarrhea.? He reports onset at 3:00 a.m. this morning.? He reports his vomit and stools have a black quality to them.?Denies more coffee ground appearance to emesis. He reports he has been passing a bowel movement every 20-30 minutes since onset. ?He reports associated abdominal pain which he describes as near his umbilicus, nonradiating, constant -> intermittent, and no modifying factors. He endorses accompanying chills. He denies fever or body aches. ?He has a history of colonic polyps which have required multiple colonoscopies in the past - last one was in 2021 or 2022.? He denies any history of NSAID use or alcohol use.? He denies any known history of renal failure, kidney disease etc. Patient is not on anticoagulation. Initial VS at presentation in ED: ?97.6? F, HR 97, RR 15, 141/88, and 100% on RA. Initial VS upon arrival: ED workup showed: ?WBC 11.7, hemoglobin 6.9, normal coags, sodium 134, creatinine 3.72, BUN 66, GFR 17 with no previous available for comparison, osmolality 297, calcium 7.4 in the setting of hypoalbuminemia at 1.8, troponin 1.11, and UA showed 3+ protein/1+ glucose/1+ blood/3-5 RBC.? Stool occult was positive.? Patient was not a candidate for CTA of the abdo men/pelvis due to his renal function.? EKG showed sinus rhythm, rate 84, moderate voltage criteria for LVH, type 3 Brugada pattern, possible septal VT of indeterminate age.? Awaiting formal read. 54 y/o male presented with c/o abdomen pain, nausea, vomiting and diarrhea, stated his stools are black, and his Hgb was 7.8, patient was seen by GI and had EGD to further evaluate, it showed poe's mucosa and there was acute bleeding, patient also has elevated tropes, seen by registered nurse practitioner suspect type II VT 2/2 demand ischemia due to stress of pain, nausea and vomiting unlikely ACS. upon arrival patient BUN and Scr are elevated suspect 2/2 vomiting, diarrhea and poor PO intake, this has resulted in metabolic acidosis, patient is being hydrated, and give bicarb PO, patient will be seen by fish and game club manager and further recommendation to follow. Review of Systems Review of Systems: All systems reviewed & are unremarkable except as noted in HPI and below Exam Narrative: Patient is comfortable, NAD HEENT: eyes are clear and none icteric LUNGS:CTA HEART: RR S1S2 ABD: BS+, Soft and nontender Lower extremities: no edema SKIN: nonjaundiced Neuro: grossly intact. Objective Data Vital Signs Vital Signs: Vital Signs - 24 hr 08/31/24 20:11 08/31/24 20:32 08/31/24 22:00 Temperature 36.8 C Pulse Rate 82 89 81 Respiratory Rate 20 Blood Pressure 148/86 H Pulse Oximetry 100 Oxygen Delivery 08/31/24 23:43 09/01/24 00:00 09/01/24 00:00 Temperature 36.7 C Pulse Rate 92 79 Respiratory Rate 20 Blood Pressure 128/65 Pulse Oximetry 100 Oxygen Delivery Room Air 09/01/24 02:00 09/01/24 04:00 09/01/24 04:00 Temperature 36.7 C Pulse Rate 76 77 Respiratory Rate 20 Blood Pressure 119/74 Pulse Oximetry 99 Oxygen Delivery Room Air 09/01/24 04:00 09/01/24 06:00 09/01/24 07:13 Temperature 36.9 C Pulse Rate 82 75 71 Respiratory Rate 18 Blood Pressure 129/76 Pulse Oximetry 100 Oxygen Delivery Room Air 09/01/24 08:24 09/01/24 08:34 09/01/24 08:44 Temperature Pulse Rate 73 78 72 Respiratory Rate 18 18 18 Blood Pressure 108/61 114/67 115/62 Pulse Oximetry 100 100 100 Oxygen Delivery Room Air Room Air Room Air 09/01/24 10:00 09/01/24 10:00 09/01/24 11:49 Temperature 36.2 C L 36.3 C L Pulse Rate 66 75 75 Respiratory Rate 20 20 Blood Pressure 144/79 H 131/77 Pulse Oximetry 100 100 Oxygen Delivery 09/01/24 13:41 09/01/24 13:57 Temperature 36.4 C L 36.4 C L Pulse Rate 80 78 Respiratory Rate 16 16 Blood Pressure 119/69 118/65 Pulse Oximetry 100 100 Oxygen Delivery Intake/Output Intake/Output: Intake & Output 08/29/24 08/30/24 08/31/24 09/01/24 23:59 23:59 23:59 23:59 Intake Total 900 Output Total 300 Balance 600 Meds/Results Medications: Active Medications Generic Name Dose Route Start Last Admin Trade Name Freq PRN Reason Stop Dose Admin Acetaminophen 650 mg 08/31/24 20:38 Acetaminophen 325 Mg Tablet PO Q4H PRN Mild Pain (1-3) or Fever Hydrocodone Bitart/Acetaminophen 1 tab 08/31/24 20:38 Hydrocodone/Acetaminophen (*Crx) 5-325 Mg Tablet PO Q4H PRN Moderate Pain (4-6) Amlodipine Besylate 5 mg 09/01/24 09:00 09/01/24 09:32 Amlodipine Besylate 5 Mg Tablet PO 5 mg DAILY [facility] Administration Ergocalciferol 1,250 mcg 09/04/24 09:00 Ergocalciferol (Vitamin D2) 1,250 Mcg (50,000 Units) Capsule PO WEEKLY [facility] Furosemide 20 mg 09/01/24 09:00 09/01/24 09:32 Furosemide 20 Mg Tablet PO 20 mg DAILY [facility] Administration Sodium Chloride 250 mls @ 30 mls/hr 09/01/24 09:32 Normal Saline Iv IV CONT 09/01/24 17:51 .Q8H20M STA Sodium Chloride 1,000 mls @ 125 mls/hr 09/01/24 12:10 Normal Saline Iv IV CONT .Q8H [facility] Losartan Potassium 50 mg 09/01/24 09:00 09/01/24 09:32 Losartan Potassium 50 Mg Tablet PO 50 mg DAILY [facility] Administration Morphine Sulfate 2 mg 08/31/24 20:38 Morphine Sulfate (*Crx) 2 Mg/Ml Inj IV PUSH Q4H PRN Pain Rated 7-10 Ondansetron HCl 4 mg 08/31/24 20:38 Ondansetron Inj 4 Mg/2 Ml Vial IV PUSH Q6H PRN Nausea And Vomiting Pantoprazole Sodium 40 mg 09/01/24 09:00 09/01/24 09:32 Pantoprazole 40 Mg Tablet PO 40 mg Q12HR [facility] Administration Rosuvastatin Calcium 40 mg 09/01/24 09:00 09/01/24 09:32 Rosuvastatin 20 Mg Tablet PO 40 mg DAILY [facility] Administration Sodium Bicarbonate 650 mg 09/01/24 11:55 Sodium Bicarbonate Tab 650 Mg Tablet PO BID [facility] Radiology Results: ITS Impressions Renal Ultrasound 09/01/24 14:25 IMPRESSION: Unremarkable renal sonogram findings. Echogenic liver, most commonly due to steatosis but also can be seen with hepatitis and fibrosis. Labs Labs: Laboratory Results - last 24 hr 08/31/24 08/31/24 09/01/24 21:02 23:37 02:58 WBC 12.8 H 10.7 H RBC 2.63 L 2.37 L Hgb 7.8 L 7.1 L Hct 25.4 L 22.2 L MCV 96.6 93.7 MCH 29.7 30.0 MCHC 30.7 L 32.0 RDW 15.3 H 15.7 H Plt Count 250 249 MPV 9.6 9.3 Immature Gran % (Auto) 0.7 H Neut % (Auto) 47.9 Lymph % (Auto) 39.3 Carroll % (Auto) 6.1 Eos % (Auto) 5.6 H Baso % (Auto) 0.4 Lymph # (Auto) 4.21 H Carroll # (Auto) 0.7 H Eos # (Auto) 0.6 H Baso # (Auto) 0.0 Abs Immat Gran (auto) 0.08 H Absolute Neuts (auto) 5.1 Absolute Nucleated RBC 0.000 Nucleated RBC % 0.0 Sodium 136 L 135 L Potassium 4.5 4.4 Chloride 118 H 119 H Carbon Dioxide 14 L 14 L Anion Gap 4 2 L BUN 64 H 64 H Creatinine 3.74 H 3.82 H Estim Creat Clear Calc 18 18 Estimated GFR 17 L 17 L Glucose 79 82 Calcium 7.9 L 7.9 L Phosphorus 5.0 H Magnesium 1.7 Total Bilirubin 0.1 L AST 22 ALT 9 Alkaline Phosphatase 46 Total Creatine Kinase 107 Troponin I 1.300 H* 1.110 H* 0.986 H* Total Protein 3.8 L Albumin 1.6 L U Random Total Protein Ur Random Sodium Urine Creatinine Protein/Creat Ratio 2 POC H. pylori Urease Blood Type Antibody Screen Crossmatch 09/01/24 09/01/24 09/01/24 05:42 05:42 09:08 WBC RBC Hgb Hct MCV MCH MCHC RDW Plt Count MPV Immature Gran % (Auto) Neut % (Auto) Lymph % (Auto) Carroll % (Auto) Eos % (Auto) Baso % (Auto) Lymph # (Auto) Carroll # (Auto) Eos # (Auto) Baso # (Auto) Abs Immat Gran (auto) Absolute Neuts (auto) Absolute Nucleated RBC Nucleated RBC % Sodium Potassium Chloride Carbon Dioxide Anion Gap BUN Creatinine Estim Creat Clear Calc Estimated GFR Glucose Calcium Phosphorus Magnesium Total Bilirubin AST ALT Alkaline Phosphatase Total Creatine Kinase Troponin I Total Protein Albumin U Random Total Protein > 600 Ur Random Sodium 52 Urine Creatinine 97.3 96.6 Protein/Creat Ratio 2 > 6.21 H POC H. pylori Urease Negative Blood Type Antibody Screen Crossmatch 09/01/24 09:47 WBC RBC Hgb Hct MCV MCH MCHC RDW Plt Count MPV Immature Gran % (Auto) Neut % (Auto) Lymph % (Auto) Carroll % (Auto) Eos % (Auto) Baso % (Auto) Lymph # (Auto) Carroll # (Auto) Eos # (Auto) Baso # (Auto) Abs Immat Gran (auto) Absolute Neuts (auto) Absolute Nucleated RBC Nucleated RBC % Sodium Potassium Chloride Carbon Dioxide Anion Gap BUN Creatinine Estim Creat Clear Calc Estimated GFR Glucose Calcium Phosphorus Magnesium Total Bilirubin AST ALT Alkaline Phosphatase Total Creatine Kinase Troponin I Total Protein Albumin U Random Total Protein Ur Random Sodium Urine Creatinine Protein/Creat Ratio 2 POC H. pylori Urease Blood Type O Positive Antibody Screen Negative Crossmatch See Detail Quality VTE Prophylaxis VTE prophylaxis: mechanical ordered
[2024-09-01] MEDS: SODIUM BICARBONATE TAB 650 MG TABLET PO (16:59)
[2024-09-01] MEDS: SODIUM CHLORIDE 0.9% IV 250 ML 30 ML IV CONT (17:00)
[2024-09-01] MEDS: TUBING, BLOOD PLUM PUMP TUBING 1 EACH XX (17:00)
[2024-09-01] MEDS: SODIUM CHLORIDE 0.9% IV 1,000 ML 125 ML IV CONT (20:28)
[2024-09-02] VITALS (10 sets, daily range): BP systolic 114–154; BP diastolic 52–84; PULSE 63–82; RESP 15–18; TEMP 36.3–36.8; O2SAT 94–100
[2024-09-02 02:29] LABS: Urea Random Urine 371 MG/DL
[2024-09-02 03:14] LABS: Urine Eos QC 2nd Tech Confirmed
[2024-09-02] MEDS: SODIUM CHLORIDE 0.9% IV 1,000 ML 125 ML IV CONT (04:50)
--- NOTE | 2024-09-02 07:10 | WPDGIPROGNO ---
Progress Note: A&P Assessment and Plan (1) Duodenal bulb ulcer: Code(s): K26.9 - Duodenal ulcer, unspecified as acute or chronic, without hemorrhage or perforation Status: Acute Assessment and Plan: No further hemoglobin drop and continued hemodynamic stability. The patient is tolerating food well, so pantoprazole 40 mg PO BID will continue as prescribed yesterday for an 8-week course. We're awaiting H. pylori results today; if positive, we'll provide an antibiotic prescription. Instruct the patient to arrange follow-up after discharge. Subjective Date/time seen: 09/02/24 07:10 Interval history: the patient did not have further melena episodes. He tolerated food well last night. Objective Data Vital Signs Vital Signs: Vital Signs - 24 hr 09/01/24 07:13 09/01/24 08:00 09/01/24 08:24 Temperature 98.5 F Pulse Rate 71 73 Respiratory Rate 18 18 Blood Pressure 129/76 108/61 Pulse Oximetry 100 100 100 Oxygen Delivery Room Air Room Air Room Air 09/01/24 08:34 09/01/24 08:44 09/01/24 10:00 Temperature Pulse Rate 78 72 66 Respiratory Rate 18 18 Blood Pressure 114/67 115/62 Pulse Oximetry 100 100 Oxygen Delivery Room Air Room Air 09/01/24 10:00 09/01/24 11:49 09/01/24 12:00 Temperature 97.2 F L 97.4 F L Pulse Rate 75 75 Respiratory Rate 20 20 Blood Pressure 144/79 H 131/77 Pulse Oximetry 100 100 100 Oxygen Delivery Room Air 09/01/24 12:00 09/01/24 13:41 09/01/24 13:57 Temperature 97.5 F L 97.5 F L Pulse Rate 80 80 78 Respiratory Rate 16 16 Blood Pressure 119/69 118/65 Pulse Oximetry 100 100 Oxygen Delivery 09/01/24 14:00 09/01/24 14:57 09/01/24 15:23 Temperature 97.6 F 98.0 F Pulse Rate 77 70 75 Respiratory Rate 14 20 Blood Pressure 123/72 121/70 Pulse Oximetry 99 100 Oxygen Delivery 09/01/24 15:57 09/01/24 16:00 09/01/24 16:00 Temperature 97.4 F L Pulse Rate 70 75 Respiratory Rate 14 Blood Pressure 120/74 Pulse Oximetry 99 100 Oxygen Delivery Room Air 09/01/24 18:00 09/01/24 19:23 09/01/24 20:00 Temperature 98.1 F Pulse Rate 74 74 Respiratory Rate 15 Blood Pressure 123/64 Pulse Oximetry 99 99 Oxygen Delivery Room Air 09/01/24 20:00 09/01/24 22:00 09/01/24 22:46 Temperature Pulse Rate 72 73 70 Respiratory Rate Blood Pressure Pulse Oximetry Oxygen Delivery 09/02/24 00:00 09/02/24 00:00 09/02/24 00:35 Temperature 98 F Pulse Rate 71 74 Respiratory Rate 15 Blood Pressure 115/52 L Pulse Oximetry 98 Oxygen Delivery Room Air 09/02/24 02:00 09/02/24 04:00 09/02/24 04:00 Temperature 97.4 F L Pulse Rate 70 65 Respiratory Rate 15 Blood Pressure 114/67 Pulse Oximetry 95 Oxygen Delivery Room Air 09/02/24 06:00 Temperature Pulse Rate 68 Respiratory Rate Blood Pressure Pulse Oximetry Oxygen Delivery Intake/Output Intake/Output: Intake & Output 08/30/24 08/31/24 09/01/24 09/02/24 23:59 23:59 23:59 23:59 Intake Total 1890 1350 Output Total 1300 600 Balance 590 750 Meds/Results Medications: Active Medications Generic Name Dose Route Start Last Admin Trade Name Benq PRN Reason Stop Dose Admin Acetaminophen 650 mg 08/31/24 20:38 Acetaminophen 325 Mg Tablet PO Q4H PRN Mild Pain (1-3) or Fever Hydrocodone Bitart/Acetaminophen 1 tab 08/31/24 20:38 Hydrocodone/Acetaminophen (*Crx) 5-325 Mg Tablet PO Q4H PRN Moderate Pain (4-6) Amlodipine Besylate 5 mg 09/01/24 09:00 09/01/24 09:32 Amlodipine Besylate 5 Mg Tablet PO 5 mg DAILY [facility] Administration Ergocalciferol 1,250 mcg 09/04/24 09:00 Ergocalciferol (Vitamin D2) 1,250 Mcg (50,000 Units) Capsule PO WEEKLY [facility] Furosemide 20 mg 09/01/24 09:00 09/01/24 09:32 Furosemide 20 Mg Tablet PO 20 mg DAILY [facility] Administration Sodium Chloride 1,000 mls @ 125 mls/hr 09/01/24 12:10 09/02/24 04:50 Normal Saline Iv IV CONT 125 mls/hr .Q8H [facility] Administration Losartan Potassium 50 mg 09/01/24 09:00 09/01/24 09:32 Losartan Potassium 50 Mg Tablet PO 50 mg DAILY [facility] Administration Morphine Sulfate 2 mg 08/31/24 20:38 Morphine Sulfate (*Crx) 2 Mg/Ml Inj IV PUSH Q4H PRN Pain Rated 7-10 Ondansetron HCl 4 mg 08/31/24 20:38 Ondansetron Inj 4 Mg/2 Ml Vial IV PUSH Q6H PRN Nausea And Vomiting Pantoprazole Sodium 40 mg 09/01/24 09:00 09/01/24 20:29 Pantoprazole 40 Mg Tablet PO 40 mg Q12HR [facility] Administration Rosuvastatin Calcium 40 mg 09/01/24 09:00 09/01/24 09:32 Rosuvastatin 20 Mg Tablet PO 40 mg DAILY [facility] Administration Sodium Bicarbonate 650 mg 09/01/24 11:55 09/01/24 17:01 Sodium Bicarbonate Tab 650 Mg Tablet PO Not Given BID [facility]A Radiology Results: ITS Impressions Renal Ultrasound 09/01/24 14:25 IMPRESSION: Unremarkable renal sonogram findings. Echogenic liver, most commonly due to steatosis but also can be seen with hepatitis and fibrosis. Labs Labs: Laboratory Results - last 24 hr 09/01/24 09/01/24 09/02/24 09:08 09:47 02:04 Urine Eosinophils None seen Ur Random Urea 371 POC H. pylori Urease Negative Blood Type O Positive Antibody Screen Negative Crossmatch See Detail
[2024-09-02 07:27] LABS: Hematocrit 27.3 % (42.0-52.0); Hemoglobin 8.6 g/dL (14.0-18.0); Immature Granulocyte Percent A 0.6 % (0-0.5); Lymphocytes Absolute Auto 2.67 K/mm3 (0.9-3.2); Mean Corpuscular HGB Conc 31.5 g/dl (32-36); Mean Corpuscular Hemoglobin 29.7 pg (26-34); Mean Corpuscular Volume 94.1 fl (80-100); Nucleated Red Blood Cells Absolute Auto 0.000 K/mm3 (0.0-0.012); Nucleated Red Blood Cells Perc 0.0 % (0.0-0.2); Platelet Count Result 236 k/mm3 (150-375); Red Blood Count 2.90 M/mm3 (4.6-6.20); White Blood Count 8.7 K/mm3 (4.5-10.0)
[2024-09-02 07:52] LABS: Alanine Aminotransferase 10 U/L (6-50); Albumin Level 1.8 g/dL (3.5-5.1); Alkaline Phosphatase 52 U/L (38-126); Anion Gap 2 mmol/L (4-12); Aspartate Amino Transferase 24 U/L (17-59); Bilirubin,Total 0.1 mg/dL (0.2-1.3); Blood Urea Nitrogen 54 mg/dL (9-20); Calcium 7.8 mg/dL (8.4-10.2); Carbon Dioxide 16 mmol/L (22-30); Chloride 119 mmol/L (98-107); Estimated CRCL calculation 20 ml/min; Estimated Glomerular Filt Rate 18; Glucose 86 mg/dL (65-110); Magnesium 1.7 mg/dL (1.6-2.3); Potassium 4.9 mmol/L (3.4-5.0); Sodium 137 mmol/L (137-145); Total Protein 4.0 g/dL (6.3-8.2)
--- NOTE | 2024-09-02 09:30 | P.PNNP_ITS ---
Progress Note: A&P Assessment and Plan (1) Acute kidney injury: Code(s): N17.9 - Acute kidney failure, unspecified Status: Acute Assessment and Plan: * improvement noted * creatinine above baseline by admission labs * this was likely due to anemia in the context of his advanced CKD * however, cannot discount an element of CKD progression * follow repeat labs and UOP (2) Stage 4 chronic kidney disease: Code(s): N18.4 - Chronic kidney disease, stage 4 (severe) Status: Chronic Assessment and Plan: * baseline creatinine runs around 2.9 - 3.5mg/dl over the last 6 months * outpatient labs on 07/05/24 -- creatinine was 3.42mg/dl * known history of nephrotic range proteinuria/syndrome since June 2023 * due to biopsy proven focal segmental glomerulosclerosis (x 2) * renal biopsy 07/06/23: 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 Tanesha Saez ([facility] in [place]) -- last seen on 05/23/24 * was started with prednisone with prophylaxis (bactrim and PPI) along with losartan * was to follow-up with her in a month to assess response to therapy (not sure he ever did...) * continue supportive therapy (3) GI bleed: Qualifiers: GI bleed type/associated pathology: unspecified gastrointestinal hemorrhage type Qualified Code(s): K92.2 - Gastrointestinal hemorrhage, unspecified Code(s): K92.2 - Gastrointestinal hemorrhage, unspecified Status: Acute Assessment and Plan: * as noted on presentation * dark emesis and dark tarry stools * hgb of 6.9 on admission * hemoccult positive * PRBC transfusion per protocol * GI recommendations noted * s/p EGD (on 09/01) with results noted: * mild patchy chronic superficial gastritis that was erythematous and with non-erosive changes * single crater acute benign ulcer in the apex of the duodenal bulb which was clean based without signs of bleeding * oral PPI * anemia complicated by known CKD * dose with SEVEN/Epogen today * diet advanced as tolerated * follow trend of H/H (4) Elevated troponin: Code(s): R79.89 - Other specified abnormal findings of blood chemistry Status: Acute Assessment and Plan: * noted on admission * Cardiology recommendations reviewed * suspect demand ischemia in the setting of anemia (5) Metabolic acidosis: Code(s): E87.20 - Acidosis, unspecified Status: Acute Assessment and Plan: * due to advanced CKD and normal saline IVFs * lactic acid normal * oral sodium bicarbonate to compensate (6) HTN (hypertension): Qualifiers: Hypertension type: primary hypertension Qualified Code(s): I10 - Essential (primary) hypertension Code(s): I10 - Essential (primary) hypertension Status: Chronic Assessment and Plan: * reasonable control * continue home BP medications * follow trend of hemodynamics Not opposed to discharge from renal perspective if otherwise medically stable -- he can 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 Will continue to follow. L Subjective Date/time seen: 09/02/24 9:30 Interval history: Follow-up for acute kidney injury/acute renal failure on chronic kidney disease. No apparent distress noted at the time of my visit; H/H relatively stable since PRBC transfusion; renal function/creatinine has improved in comparison to admission; tolerating oral intake; no other events overnight or earlier this morning. Exam 2 Narrative: General: WD/WN male in NAD Heart: normal S1 and S2; no rub Lungs: clear to auscultation Abdomen: soft, nontender, nondistended, positive bowel sounds Extremities: no cyanosis or clubbing; no edema Skin: warm and dry Objective Data Vital Signs Vital Signs: Vital Signs Temp Pulse Resp BP Pulse Ox O2 Del Method 09/02/24 08:01 98.2 F 71 18 143/67 H 100 09/02/24 08:00 82 09/02/24 08:00 Room Air 09/02/24 06:00 68 09/02/24 04:00 69 09/02/24 04:00 Room Air 09/02/24 04:00 97.4 F L 65 15 114/67 95 09/02/24 02:00 70 09/02/24 00:35 98 F 74 15 115/52 L 98 09/02/24 00:00 71 09/02/24 00:00 Room Air 07/06/25 22:46 70 09/01/24 22:00 73 09/01/24 20:00 72 09/01/24 20:00 99 Room Air 09/01/24 19:23 98.1 F 74 15 123/64 99 09/01/24 18:00 74 09/01/24 16:00 75 09/01/24 16:00 100 Room Air 09/01/24 15:57 97.4 F L 70 14 120/74 99 09/01/24 15:23 98.0 F 75 20 121/70 100 09/01/24 14:57 97.6 F 70 14 123/72 99 09/01/24 14:00 77 09/01/24 13:57 97.5 F L 78 16 118/65 100 09/01/24 13:41 97.5 F L 80 16 119/69 100 Intake/Output Intake/Output: Intake & Output 08/30/24 08/31/24 09/01/24 09/02/24 23:59 23:59 23:59 23:59 Intake Total 1890 1590 Output Total 1300 600 Balance 590 990 Meds/Results Medications: Active Medications Generic Name Dose Route Start Last Admin Trade Name Freq PRN Reason Stop Dose Admin Acetaminophen 650 mg 08/31/24 20:38 Acetaminophen 325 Mg Tablet PO Q4H PRN Mild Pain (1-3) or Fever Hydrocodone Bitart/Acetaminophen 1 tab 08/31/24 20:38 Hydrocodone/Acetaminophen (*Crx) 5-325 Mg Tablet PO Q4H PRN Moderate Pain (4-6) Amlodipine Besylate 5 mg 09/01/24 09:00 09/02/24 09:33 Amlodipine Besylate 5 Mg Tablet PO 5 mg DAILY GALA Administration Epoetin Naveen-epbx 20,000 units 09/02/24 12:30 Epoetin Naveen-Epbx 20,000 Units/Ml Vial SUB-Q 09/02/24 12:31 ONCE ONE Ergocalciferol 1,250 mcg 09/04/24 09:00 Ergocalciferol (Vitamin D2) 1,250 Mcg (50,000 Units) Capsule PO WEEKLY GALA Furosemide 20 mg 09/01/24 09:00 09/01/24 09:32 Furosemide 20 Mg Tablet PO 20 mg DAILY GALA Administration Losartan Potassium 50 mg 09/01/24 09:00 09/02/24 09:33 Losartan Potassium 50 Mg Tablet PO 50 mg DAILY GALA Administration Morphine Sulfate 2 mg 08/31/24 20:38 Morphine Sulfate (*Crx) 2 Mg/Ml Inj IV PUSH Q4H PRN Pain Rated 7-10 Ondansetron HCl 4 mg 08/31/24 20:38 Ondansetron Inj 4 Mg/2 Ml Vial IV PUSH Q6H PRN Nausea And Vomiting Pantoprazole Sodium 40 mg 09/01/24 09:00 09/02/24 09:33 Pantoprazole 40 Mg Tablet PO 40 mg Q12HR GALA Administration Rosuvastatin Calcium 40 mg 09/01/24 09:00 09/02/24 09:32 Rosuvastatin 20 Mg Tablet PO 40 mg DAILY GALA Administration Sodium Bicarbonate 650 mg 09/01/24 11:55 09/02/24 09:33 Sodium Bicarbonate Tab 650 Mg Tablet PO 650 mg BID GALA Administration Radiology Results: ITS Impressions Renal Ultrasound 09/01/24 14:25 IMPRESSION: Unremarkable renal sonogram findings. Echogenic liver, most commonly due to steatosis but also can be seen with hepatitis and fibrosis. Labs Labs: Laboratory Tests 09/02/24 07:22 09/02/24 07:22 Calcium 7.8 L Phosphorus 4.2 Magnesium 1.7 Total Bilirubin 0.1 L AST 24 ALT 10 Alkaline Phosphatase 52 Total Protein 4.0 L Albumin 1.8 L
[2024-09-02] MEDS: ROSUVASTATIN 20 MG TABLET 40 MG PO (09:32)
[2024-09-02] MEDS: LOSARTAN POTASSIUM 50 MG TABLET PO (09:33)
[2024-09-02] MEDS: SODIUM BICARBONATE TAB 650 MG TABLET PO (09:33)
[2024-09-02] MEDS: PANTOPRAZOLE 40 MG TABLET PO (09:33)
--- NOTE | 2024-09-02 12:52 | PM.DS ---
DS: Admitting Diagnosis Discharge Date 09/02/24 Admitting Diagnosis GI Bleed DS: Discharge Diagnosis Discharge Diagnosis (1) GI bleed: Qualifiers: GI bleed type/associated pathology: unspecified gastrointestinal hemorrhage type Qualified Code(s): K92.2 - Gastrointestinal hemorrhage, unspecified Code(s): K92.2 - Gastrointestinal hemorrhage, unspecified Status: Acute Assessment and Plan: Dark emesis and dark tarry stools starting at 3:00 a.m. on 08/31. - Hgb 6.9, plan for 1u of PRBC - hemoccult+ - not on anticoagulation - unable to perform CTA due to patient?s renal function - GI consulted, awaiting recs plan for upper EGD tomorrow on 09/01 - trend H&H Q4H - started on pantoprazole BID - last colonoscopy in 2022, not on file - no EGD on file - monitor hemodynamic stability and telemetry, admit to IMU (2) Acute renal failure: Qualifiers: Acute renal failure type: unspecified Qualified Code(s): N17.9 - Acute kidney failure, unspecified Code(s): N17.9 - Acute kidney failure, unspecified Status: Acute Assessment and Plan: - check renal ultrasound - check CK, urine sodium, protein/creatinine, phos, mag - UA:? 3+ protein 1+ glucose, 1+ blood, 3-5 RBC - bladder scan post void x1 - monitor I&Os - reviewed home medications, will hold Lasix 20 mg - nephrology consulted (3) Elevated troponin: Code(s): R79.89 - Other specified abnormal findings of blood chemistry Status: Acute Assessment and Plan: - EKG, initial: showed sinus rhythm, rate 84, moderate voltage criteria for LVH, type 3 [place] pattern, possible septal [place] of indeterminate age.? Awaiting formal read. - repeat EKG upon arrival - check CXR - Troponin: 1.11 -> 1.3, trend - hold ASA admin, concern for GI Bleed - SL nitro PRN - cardiology consulted - no previous stress test of echo on file - continue rosuvastatin - telemetry monitoring (4) HTN (hypertension): Qualifiers: Hypertension type: primary hypertension Qualified Code(s): I10 - Essential (primary) hypertension Code(s): I10 - Essential (primary) hypertension Status: Chronic Assessment and Plan: - chronic, currently 141/88 - continue home medications:? Amlodipine, losartan , Lasix - monitor Plan 54 y/o male presented with c/o abdomen pain, nausea, vomiting and diarrhea, stated his stools are black, and his Hgb was 7.8, patient was seen by GI and had EGD to further evaluate, it showed poe's mucosa and there was acute bleeding, patient also has elevated tropes, seen by production control coordinator suspect type II [place] 2/2 demand ischemia due to stress of pain, nausea and vomiting unlikely ACS. upon arrival patient BUN and Scr are elevated suspect 2/2 vomiting, diarrhea and poor PO intake, this has resulted in metabolic acidosis, patient is being hydrated, and give bicarb PO, patient will be seen by ammonium nitrate neutralizer and further recommendation to follow. patient clinical symptoms are improving, his Hgb is stable and there is no sign of bleeding, will discharge patient, Diet: NPO GI Prophylaxis: Pantoprazole b.i.d. DVT Prophylaxis: SCDs IV fluids: NS 100 mL/hr Lines/Tubes: peripheral IV Code Status: full code DS: Summary Hospital Course Hospital Course: 54 y/o male presented with c/o abdomen pain, nausea, vomiting and diarrhea, stated his stools are black, and his Hgb was 7.8, patient was seen by GI and had EGD to further evaluate, it showed poe's mucosa and there was acute bleeding, patient also has elevated tropes, seen by production control coordinator suspect type II [place] 2/2 demand ischemia due to stress of pain, nausea and vomiting unlikely ACS. upon arrival patient BUN and Scr are elevated suspect 2/2 vomiting, diarrhea and poor PO intake, this has resulted in metabolic acidosis, patient is being hydrated, and give bicarb PO, patient will be seen by ammonium nitrate neutralizer and further recommendation to follow. patient clinical symptoms are improving, his Hgb is stable and there is no sign of bleeding, his metabolic acidosis has improve, will discharge patient, Time Spent with Patient Time attestation: Total time spent providing and/or coordinating discharge services: Exam Narrative: Patient is comfortable, NAD HEENT: eyes are clear and none icteric LUNGS:CTA HEART: RR S1S2 ABD: BS+, Soft and nontender Lower extremities: no edema SKIN: nonjaundiced Neuro: grossly intact. DS: Data Data Completed and Pending Pending studies at discharge: Pending at discharge 07/06/25 08:12 Surgical [PTH] Routine Labs on day of discharge: Labs from last 24 hours 09/02/24 09/02/24 09/01/24 07:22 02:04 09:47 WBC 8.7 RBC 2.90 L Hgb 8.6 L Hct 27.3 L MCV 94.1 MCH 29.7 MCHC 31.5 L RDW 16.2 H Plt Count 236 MPV 9.5 Immature Gran % (Auto) 0.6 H Neut % (Auto) 55.8 Lymph % (Auto) 30.7 [place] % (Auto) 6.1 Eos % (Auto) 6.2 H Baso % (Auto) 0.6 Lymph # (Auto) 2.67 [place] # (Auto) 0.5 Eos # (Auto) 0.5 H Baso # (Auto) 0.1 Abs Immat Gran (auto) 0.05 H Absolute Neuts (auto) 4.9 Absolute Nucleated RBC 0.000 Nucleated RBC % 0.0 Sodium 137 Potassium 4.9 Chloride 119 H Carbon Dioxide 16 L Anion Gap 2 L BUN 54 H D Creatinine 3.58 H Estim Creat Clear Calc 20 Estimated GFR 18 L Glucose 86 Calcium 7.8 L Phosphorus 4.2 Magnesium 1.7 Total Bilirubin 0.1 L AST 24 ALT 10 Alkaline Phosphatase 52 Total Protein 4.0 L Albumin 1.8 L Urine Eosinophils None seen Ur Random Urea 371 Blood Type O Positive Antibody Screen Negative Crossmatch See Detail Discharge Plan Discharge Attending physician on discharge: Dennise Casillas Consulting providers: Kal Ayers; Donte Gillespie; Chas Centeno; Soha Sandy; Ghazala George; Bakari Adhikari; Bunny Bah Discharging Clinician: Dennise Casillas Patient Disposition: Home Activity: as tolerated Diet: heart healthy Discharge Instructions: patient to follow up with AUDIE Dumont as scheduled, patient to follow up with his ammonium nitrate neutralizer in 2 weeks to check his kidney function, patient to follow up with his primary care provider as soon as possible, patient is instructed if any symptoms redevelop to go to nearest ER. Patient Instructions: Antibiotic Form, Gastrointestinal Bleeding (GEN), Acute Kidney Injury (GEN) Patient Language: [place]ian Stand Alone Forms: General Discharge Information, Work/School Release IP Follow-up/Referrals: Chas Centeno MD [Physician] - Marcelino,MD Main [Primary Care Provider] - Discharge Medications: New sodium bicarbonate 650 mg Tablet 650 mg PO BID Qty: 28 0RF pantoprazole 40 mg Tablet,Delayed Release (Dr/Ec) 40 mg PO Q12HR Qty: 112 0RF Continued ergocalciferol (vitamin D2) 1,250 mcg (50,000 unit) capsule 1,250 mcg PO WEEKLY furosemide 20 mg tablet 20 mg PO QAM rosuvastatin 40 mg tablet 40 mg PO DAILY amlodipine 5 mg tablet 5 mg PO DAILY sildenafil 100 mg tablet 100 mg PO PRN losartan 50 mg tablet 50 mg PO DAILY Discontinued amlodipine 5 mg tablet 5 mg PO DAILY pantoprazole 40 mg tablet,delayed release (DR/EC) 40 mg PO QAM ergocalciferol (vitamin D2) 1,250 mcg (50,000 unit) capsule 1,250 mcg PO WEEKLY pantoprazole 40 mg tablet,delayed release (DR/EC) 40 mg PO DAILY furosemide 20 mg tablet 20 mg PO DAILY rosuvastatin 40 mg tablet 40 mg PO DAILY sildenafil 100 mg tablet 100 mg PO DIRECTED Date of admission: 09/01/24 08:15 Primary Care Provider: MarcelinoMain Admitting Provider: Dennise Casillas Attending physician on admission: Dennise Casillas Condition: Stable
== END 2024-09-02 13:40 | disposition home or self-care (01) | DRG 378 ==
PROVIDERS: Internal Medicine Gastroenterology; Internal Medicine Nephrology; Student in an Organized Health Care Education/Training Program; Admitting Provider Family Medicine; PCP Family Medicine; Visit Provider Family Medicine
PROC: 0DJ08ZZ Inspection of Upper Intestinal Tract, Via Natural or Artificial Opening Endoscopic (ICD-10-PCS; principal; 2024-09-01 07:30)
DX: K26.0 Acute duodenal ulcer with hemorrhage (principal); I24.89 Other forms of acute ischemic heart disease; N17.9 Acute kidney failure, unspecified; N18.4 Chronic kidney disease, stage 4 (severe); K50.90 Crohn's disease, unspecified, without complications; I12.9 Hypertensive chronic kidney disease with stage 1 through stage 4 chronic kidney disease, or unspecified chronic kidney disease; K22.70 Barrett's esophagus without dysplasia; K29.30 Chronic superficial gastritis without bleeding; K21.9 Gastro-esophageal reflux disease without esophagitis; E78.5 Hyperlipidemia, unspecified; F32.A Depression, unspecified; F10.10 Alcohol abuse, uncomplicated; F17.210 Nicotine dependence, cigarettes, uncomplicated; Z86.11 Personal history of tuberculosis
CPT/HCPCS: 36415; 36430; 76775; 80048; 80053; 82550; 82570; 83735; 84100; 84156; 84300; 84484; 84540; 85025; 85027; 85999; 86850; 86900; 86901; 86923; 87081; 88305; A9270; J0168; J2003; J2470; J2704; J7030; J7050; J7120; P9016